=== PATIENT | male | born 1975 | race African-American/Black ===

== ENCOUNTER 2017-07-10 13:02 | Observation (INO) | payer MEDICAID, OTHER ==
[2017-07-10] MEDS ORDERED: Aspirin 81 MG Tab.Chew PO ONE (14:24)
[2017-07-10] MEDS ORDERED: Sodium Chloride 0.9% 10 ML Syringe FLUSH SCH (14:30)
[2017-07-10] MEDS ORDERED: Acetaminophen 325 MG Tab PO PRN (15:00)
[2017-07-10] MEDS ORDERED: Sodium Chloride 0.9% 10 ML Syringe FLUSH PRN (15:00)
--- NOTE | 2017-07-10 15:19 | PCM.HP ---
H&P History of Present Illness - General Date of Service: 07/10/17 Admit Problem/Dx: Admission Diagnosis/Problem Admission Diagnosis/Problem Chest pain Source of Information: Patient, Family, Old Records, Provider History Limitations: Reports: Other (multiple facilities, records not available. ) - History of Present Illness Initial Comments - Free Text/Narative: Patient is a 42-year-old male with a history of a cardiac ablation for unknown causes at the age of 14 and a pacemaker placement at the age of 26. He has a history of paroxysmal atrial fibrillation and was diagnosed with this in about 2003. He refuses warfarin because he doesn't like how it makes him feel. The patient has a history of intermittent chest pain with pressure sensation, squeezing and heaviness. He also has trouble with shortness of breath particularly with exertion. He has an extensive history of tobacco abuse, cannabis, and NyQuil abuse. He drinks alcohol occasionally. He was recently incarcerated in [place] for a domestic abuse charge which apparently was against a child. When he got out of senior living apparently he presented to the [place] emergency department and ended up being hospitalized and having a stress test done there. He tells me he never heard the results back. It was a treadmill test and he tells me he went 13 minutes and they didn't have to stop the test, but he also had dye injected and never heard what that result was. This was sometime after October. He moved back here with his and this morning woke up at 5 AM with a squeezing, heavy chest pressure. This heavy chest pressure was similar to what he has had before, but much more severe. Associated with shortness of breath but not really more shortness of breath than normal. He had no dizziness, no nausea or vomiting, no radiation to the jaw or arm. No radiation through the back. It was like a squeezing tightness in his chest where he just felt like he couldn't catch his breath. He stayed in bed because he was so comfortable in bed and then after his made him some coffee he finally got up. Didn't change with activity, eating or drinking didn' t make it better or worse. Sometimes this pain lasts for 2 days and sometimes just for a few minutes. He normally can go ahead and just do his regular activities but this was much more severe than usual. He finally went into the clinic for an urgent care appointment at around 11. He was seen and evaluated at the clinic at [facility]. Troponin was done and was 0.010 which is negative. The upper limit of normal 0.08. CBC was done which was completely unremarkable with a hemoglobin of 14.1, white count 7, platelets 183,000, chemistries were normal with a glucose of 97, sodium 136, potassium 4.2, chloride 104, CO2 26, BUN 21, creatinine 1.04, normal liver enzymes, normal albumin. Patient received a nebulizer treatment they're thinking this may be related to his asthma with no improvement in his symptoms. The provider at the clinic called me and asked me to admit the patient for serial troponins and rule out myocardial infarction. The patient's pain started at 5 AM and his initial labs were done at 1144. He had had constant pain throughout that time. He continues to have the same sensation only it's much less painful at this time. He describes it now more a gentle squeezing or tightness in the chest. It was previously 10, now 10. Past medical history: -Reported history of asthma -Reported history of pacemaker placement, status post ablation, and paroxysmal atrial fibrillation as noted above. Echocardiogram done 08/12/2016 showed EF of 60%, no diastolic dysfunction, no wall motion abnormalities. Essentially a normal study. I was able to obtain stress echo results from [facility] done 02/05/2017 which showed ejection fraction 55% with Augmentin to 65% with exercise. No regional wall motion abnormalities, negative for diagnostic ischemic EKG changes and a peak level stress, normal heart response, normal blood pressure response, and exercise capacity above average based on age and gender. Normal stress echocardiogram. -Reported history of tobacco abuse, smoking less than a pack a day currently. -Bipolar disorder currently not on medication - Cannabis abuse 4-5 times a day, every day. - History of generalized anxiety disorder and depression currently in remission , not on medication. Current medications: [facility] records notes the patient is taking Seroquel but he says he has not been taking this. Otherwise medications are Flonase, delirium, Coreg twice a day , albuterol, aspirin daily but he did not take it today. Social history: The patient lives in [place] with his . She has children and he has children but none of them live with them. He and his moved back here in January. He had been in senior living from Father's Day 2016 through October 01. Then after 2 or 3 days was hospitalized in [place] and had a stress test done which he does not know the results of. He smokes a little less than a pack cigarettes per day. Occasional alcohol use, he drinks NyQuil in large unquantified volumes daily since he was a child, he smokes marijuana for 5 times a day. He has 9 children, none of whom live with him. He works as a injection molder, breeding blue heelers and pit bulls. Family history: His mother's side of the family is diffusely positive for heart disease although he can't give me any details. His oldest daughter had some type of heart event at the age of 17 but he's not sure what. His father just recently got a pacemaker placed but he doesn't talk to him regularly so isn't sure why. His mother is living and healthy as far as he knows. He has 13 brothers and 10 sisters most of which are half siblings. - Related Data Allergies/Adverse Reactions: Allergies Allergy/AdvReac Type Severity Reaction Status Date / Time cyclobenzaprine HCl Allergy Severe Swelling Verified 07/10/17 13:28 [From Flexeril] digoxin Allergy Cannot Verified 07/10/17 13:28 Remember latex Allergy Hives Verified 07/10/17 13:28 Pork/Porcine Containing Allergy Cannot Verified 07/10/17 13:28 Products Remember tomato [Tomato] Allergy Cannot Verified 07/10/17 13:28 Remember CATS Allergy Cannot Uncoded 07/10/17 13:28 Remember DOGS Allergy Cannot Uncoded 07/10/17 13:28 Remember SEASONAL ALLERGIES Allergy Cannot Uncoded 07/10/17 13:28 Remember Home Medications: Home Meds RX: Carvedilol [Coreg] 25 mg PO BID 11/15/12 [History] RX: Formoterol/Mometasone [Dulera 100 MCG/5 MCG] 2 puff PO BID 04/29/15 [History ] RX: Carvedilol [Coreg] 6.25 mg PO BID 07/10/17 [History] RX: predniSONE 40 mg PO WITHBREAKFAST 4 Days #8 tablet 07/10/17 [Rx] Past Medical History Cardiovascular History: Reports: Afib, Cardiomyopathy, Pacemaker, Other (See Below) Other Cardiovascular History: HAS HISTORY OF ENLARGED HEART. Pt has Hx Goldsmith- Parkinson-White syndrome. Respiratory History: Reports: Asthma Gastrointestinal History: Reports: Other (See Below) Other Gastrointestinal History: decreased appetite - Infectious Disease History Infectious Disease History: Reports: None - Past Surgical History Cardiovascular Surgical History: Reports: AICD Social & Family History - Family History Family Medical History: Noncontributory - Tobacco Use Smoking Status *Q: Current Every Day Smoker Years of Tobacco use: 28 Packs/Tins Daily: 0.7 Used Tobacco, but Quit: No Second Hand Smoke Exposure: Yes - Caffeine Use Caffeine Use: Reports: Coffee - Recreational Drug Use Recreational Drug Use: Yes Drug Use in Last 12 Months: Yes Recreational Drug Type: Reports: Marijuana/Hashish Recreational Drug Use Frequency: Binges Recreational Drug Last Use: T - Living Situation & Occupation Living situation: Reports: Single Occupation: Disabled H&P Review of Systems - Review of Systems: Review Of Systems: ROS reveals no pertinent complaints other than HPI. Exam - Exam Exam: See Below - Vital Signs Weight: 77.428 kg - Exam General: Alert, Oriented, Cooperative (No distress. Talking and laughing in the exam room with his and staff. Has pain currently 5/10. ) HEENT: PERRLA, Conjunctiva Clear, Mucosa Moist & Falkner, Posterior Pharynx Clear Neck: Supple, Trachea Midline Lungs: Normal Respiratory Effort, Decreased Breath Sounds, Wheezing (Diffuse expiratory wheezing. ) Cardiovascular: Regular Rate, Regular Rhythm, Normal S1, Normal S2 (Paced rhythm.) GI/Abdominal Exam: Normal Bowel Sounds, Soft, Non-Tender, No Distention Extremities: No Pedal Edema Psychiatric: Alert EKG INTERPRETATION EKG Date: 07/10/17 EKG Interpretation Comments: EKG done at the clinic shows paced rhythm which is clearly atrial paced and he has inverted T waves in 2, 3, aVF and V4, V5 and the 6. No ST elevation or depression. The last EKG I am able to find in the [facility] system is from August and shows that T-wave inversion is a new finding. However when I look back at 2014 EKG June 22, he had flipped T waves at that time in 3 and aVF, and V4. - Problem List (1) Chest pain SNOMED Code(s): 64130795 ICD Code: R07.9 - CHEST PAIN, UNSPECIFIED Status: Acute Priority: High Current Visit: No Onset Date: 06/21/14 Problem Details: Given that the patient had pain from 5 AM and a negative troponin at 11:44, and his pain has not changed in its quality during that time and is still present currently, I think very unlikely this is cardiac in origin. Discussed with the patient that after having 12 hours of pain with 2 negative troponins it's very unlikely that he is having heart ischemia as the cause of his pain. Second troponin at 1700 was negative. Discussed the evidence that this was not a heart attack. Although the patient had flipped T waves in his EKG at the clinic, these resolved and went back to baseline with repeat EKG here. Discussed with the patient that none of the testing that we do can prove that he won't have a heart attack but the fact that his troponin was negative shows that no heart tissue was currently damaged. I recommended he follow-up with his patrol man tomorrow and he'll call them by phone and schedule an appointment. Of note with the DuoNeb and the prednisone he feels his breathing has considerably improved and he now believes that that was the cause of his shortness of breath and his chest tightness. We'll discharge him home on prednisone with short interval follow-up with cardiology. If sxs recur, come to ER. (2) Asthma SNOMED Code(s): 569429180 ICD Code: J45.909 - UNSPECIFIED ASTHMA, UNCOMPLICATED Status: Acute Current Visit: Yes Problem Details: Discharge on 40 mg prednisone daily for 5 days, first dose given today. Stressed the importance of not exposing his lungs to smoke either marijuana or cigarette. Follow-up with his primary care provider within a week. Problem List Initiated/Reviewed/Updated: Yes Orders Last 24hrs: Active Orders 24 hr Category Date Time Status Patient Status [ADT] Routine ADT 07/10/17 15:00 Ordered Bedrest Bedside Commode [RC] ASDIRECTED Care 07/10/17 15:00 Ordered Cardiac Monitoring [RC] CONTINUOUS Care 07/10/17 15:01 Ordered Height and Weight [RC] DAILY Care 07/10/17 15:00 Ordered Intake and Output [RC] QSHIFT Care 07/10/17 15:01 Ordered Oxygen Therapy [RC] PRN Care 07/10/17 15:00 Ordered VTE/DVT Education [RC] Per Unit Routine Care 07/10/17 15:00 Ordered Vital Signs [RC] Q4H Care 07/10/17 15:00 Ordered Clear Liquid Diet [DIET] Diet 07/10/17 Breakfast Ordered Chest 2V [CR] Routine Exams 07/10/17 15:00 Ordered TROPONIN I [CHEM] Timed Lab 07/10/17 17:00 Ordered Acetaminophen [Tylenol] Med 07/10/17 15:00 Ordered 650 mg PO Q4H PRN Sodium Chloride 0.9% [Saline Flush] Med 07/10/17 15:00 Ordered 10 ml FLUSH ASDIRECTED PRN Sodium Chloride 0.9% [Saline Flush] Med 07/10/17 14:30 Active 10 ml FLUSH DAILY Peripheral IV Insertion Adult [OM.PC] Routine Oth 07/10/17 15:00 Ordered Resuscitation Status Routine Resus Stat 07/10/17 15:00 Ordered Medication Orders Sodium Chloride (Saline Flush) 10 ml FLUSH DAILY JING Last Admin: 07/10/17 14:15 Dose: 10 ml
[2017-07-10] MEDS ORDERED: Albuterol/Ipratropium 3.0-0.5 MG/3 ML Neb Soln NEB PRN (15:34)
[2017-07-10] MEDS ORDERED: predniSONE 20 MG Tab PO SCH (15:40)
[2017-07-10] MEDS ORDERED: Nitroglycerin 0.4 MG Tab.SL ONE (15:53)
[2017-07-10] MEDS ORDERED: Nitroglycerin 0.4 MG Tab.SL SL PRN ×2 (16:22→16:25)
[2017-07-10] MEDS ORDERED: Nitroglycerin 0.4 MG Tab.SL SL ONE (16:23)
[2017-07-10 16:49] VITALS: BP 139/97
[2017-07-10] MEDS ORDERED: Formoterol/Mometasone 100-5 MCG 8.8 GM Inhaler IH SCH (21:00)
[2017-07-10] MEDS ORDERED: Carvedilol 25 MG Tab PO SCH (21:00)
[2017-07-10] MEDS ORDERED: Carvedilol 6.25 MG Tab PO SCH (21:00)
--- NOTE | 2017-07-11 10:36 | CR ---
INDICATION: Short of breath, chest pain. CHEST: PA and lateral views of the chest were obtained 07/10/2017 and compared with 03/28/2015 and 06/21/2014. Hyperaeration, flattened diaphragm leaves, AP diameter prominence, and interdigitation of the right hemidiaphragm leaf were all compatible with COPD, which likely is progressive. The heart appears to be near the upper limits of normal in size. The aorta is somewhat tortuous. Bipolar pacemaker leads are unchanged in position with atypical position of the right ventricular lead again noted. Overlying EKG leads are noted. An active infiltrate or effusion was not identified. IMPRESSION: 1. Stable chest, except for question of slightly increased heart size. No definite acute process. 2. COPD. 3. Probable mild ASD aorta. MTDD
== END 2017-07-10 17:55 | disposition home or self-care (01) ==
LOC: FB.ICU 13:02
PROVIDERS: ADMIT Family Medicine; ATTEND Family Medicine
DX: R07.89 Other chest pain (principal); J45.909 Unspecified asthma, uncomplicated; I48.0 Paroxysmal atrial fibrillation; F31.9 Bipolar disorder, unspecified; F12.10 Cannabis abuse, uncomplicated; F41.1 Generalized anxiety disorder; I42.9 Cardiomyopathy, unspecified; Z95.0 Presence of cardiac pacemaker; Z87.891 Personal history of nicotine dependence; Z79.82 Long term (current) use of aspirin; Z79.899 Other long term (current) drug therapy; Z82.49 Family history of ischemic heart disease and other diseases of the circulatory system; Z88.8 Allergy status to other drugs, medicaments and biological substances; Z91.040 Latex allergy status; Z91.018 Allergy to other foods; Z91.09 Other allergy status, other than to drugs and biological substances
CPT/HCPCS: 36415; 71046; 84484; 93005; A9270; J7050; G0378

== ENCOUNTER 2017-08-04 03:46 | Emergency (ER) | payer MEDICAID ==
[2017-08-04] MEDS: Aspirin 81 MG Tab.Chew PO ONE (04:45)
[2017-08-04] MEDS: Metoclopramide 10 MG/2 ML SDV IVPUSH ONE ×2 (05:00→06:51)
[2017-08-04] MEDS: Alum Hydroxide/Mag Hydroxide 15 ML, Lidocaine 2% 15 ML PO ONE ×4 (05:16→09:02)
[2017-08-04] MEDS: Sodium Chloride 0.9% 1,000 ML IV SCH ×2 (05:58→08:13)
[2017-08-04] MEDS: Morphine 10 MG/ML Syringe IVPUSH ONE (06:13)
[2017-08-04] MEDS ORDERED: Metoprolol Tartrate 5 MG in Sodium Chloride 0.9% 50 ML IV ONE (07:36)
[2017-08-04] MEDS ORDERED: Metoprolol Tartrate 50 MG Tab PO SCH (07:45)
[2017-08-04] MEDS ORDERED: Diltiazem IR 60 MG Tab PO SCH (08:00)
[2017-08-04] MEDS: Diltiazem 25 MG/5 ML SDV IVPUSH ONE (08:13)
[2017-08-04] MEDS: Diltiazem IR 60 MG Tab PO SCH (08:14)
[2017-08-04 11:25] VITALS: BP 146/84
--- NOTE | 2017-08-05 09:22 | CR ---
INDICATION: Chest pain. CHEST: AP upright view of the chest was obtained 08/04/2017 at 0449 hours and compared with 07/10/2017 and 03/28/2015. The heart is at the upper limits of normal in size and appearance. Bipolar pacemaker leads are unchanged in position. The ventricular lead is in atypical position. Overlying EKG leads are noted. The lungs appear to be somewhat hyperaerated, suggesting COPD - correlate clinically. The aorta is tortuous. An active infiltrate or effusion was not identified. IMPRESSION: No acute process - findings as noted above. MTDD
--- NOTE | 2017-08-08 09:41 | ER ---
DATE SEEN: 08/04/2017 HISTORY OF PRESENT ILLNESS: This 42-year-old man, 3+ years ago, had been diagnosed with WPW, had ablation for atrial fibrillation, now has pacemaker in place. He presents this evening with a history of 2 successive stools followed by vomiting on 3 occasions and standing in the shower for an hour and a half. He presented to the emergency room at 0410 hours. He had burning in his chest, which he thinks is secondary to vomiting and what he calls as chest pain. His chest wall is uncomfortable. The patient uses marijuana. He has a pacemaker in place. He uses Coreg 6.25 mg b.i.d. plus carvedilol/Coreg 25 mg b.i.d. for a total of 31.25 mg b.i.d. He has been taking his medicine. Has asthma. MEDICATIONS: He takes: 1. Montelukast/Singulair daily. 2. Prednisone 20 mg b.i.d. 3. Formoterol/mometasone-Dulera 100 mcg/5 mcg. ALLERGIES: Cyclobenzaprine, digoxin, latex, pork, tomatoes, cats, dogs, seasonal allergies. He had pork yesterday and thought that probably this was the cause for his vomiting. OTHER SIGNIFICANT PAST MEDICAL HISTORY: He has had toothaches, acute coronary syndrome, asthma attacks. REVIEW OF SYSTEMS: HEENT: Has mild headache. No sore throat. No fever. No chills. No cough. No sinus problem. LUNGS: No cough. No increased shortness of breath. He has burning in his chest, which he describes as chest pain and relates this to his vomiting. Has mild abdominal discomfort. Denies diarrhea. He has had vomiting. No hematochezia. No jaundice history. No hepatitis history. No other unusual infectious diseases. Denies any musculoskeletal complaints or joint pains in previous years, history of head injury or serious headaches or migraines. PHYSICAL EXAMINATION: VITAL SIGNS: Blood pressure 182/117, heart rate 60, respirations 12, oxygen saturation 100%. HEENT: PERRLA intact. He has slight fogging of the lens in his eyes. I was unable to visualize the eyegrounds well enough, but did not appear to have AV nicking. No hemorrhages. No optic cup disc abnormalities. EOMs normal. Hearing is good. The patient is lying in a slight position resting on his side. LUNGS: Clear without rales, rhonchi, or wheezes. HEART: S1, S2. S2 is greater than S1. ABDOMEN: Soft. No guarding. No abdominal discomfort. Bowel sounds hypoactive. No CVA percussion tenderness. No spinous process or neck tenderness or cervical adenopathy or tracheal tug. EXTREMITIES: Without abnormality. Deep tendon reflexes normoactive upper and lower extremities. Cranial nerves 2 through 12 intact. Gait intact. Romberg negative and no pronator drift. No dysmetria. WORKING DIAGNOSIS: Etiology for the patient's pain, rule out possible myocardial infarction. Hypertension is a concern. It is presumed that blood pressure come down is brief, but his blood pressure was persistently elevated. Consequently, he was given a dose of labetalol 5 mg IV and a dose of diltiazem 10 mg IV push, plus 60 mg diltiazem orally, plus metoclopramide 10 mg IV, and aspirin 325 mg orally, plus GI cocktail. He vomited this up, but later when he was without nausea, this was repeated and he was able to keep the GI cocktail down. GI cocktail was signed to treat his burning. LAB TESTS: Demonstrate he was positive for marijuana, otherwise, no other drugs noted in his drug screen. White count 9,200, PMNs 77, lymphocytes 19, monos 2, eosinophils 0, platelets 295,000. D-dimer is trace elevated 0.6. This is just slightly above normal at 0.59 and complete metabolic panel negative except for chloride 99, sodium 136, potassium 4.9, CO2 of 29, glucose 123, troponin less than 0.017, alkaline phosphatase trace elevated at 53. Urine is negative except for positive for marijuana. Additionally, I have concerns about the patient having a CAT scan of the head to make sure, because of the persistent vomiting. CAT scan of the head was negative. He gradually has progressed and his blood pressure came down. He had a prolonged stay in the emergency room, as it took a while to bring his pressure down and also there was a delay in coming to diagnosed etiology for his vomiting. It is thought perhaps he might have gastrointestinal-mediated process, but this was felt to be unlikely because of his abdominal exam. His pressures gradually came down to 156/96. I spoke regarding his status with Dr. Powers, monument setter helper, in [place]. He concurred with the idea that the patient should be on a calcium channel chelle, as opposed to beta chelle, since he is and they do much better on the calcium channel chelle. Consequently, the patient to be placed on amlodipine and decrease his Coreg to 5 mg a day and see his doctor on a daily basis. His amlodipine may need to be increased up to 10 mg if does not stabilize on the current regimen. We felt the patient should be tapered off his beta chelle and use amlodipine and calcium channel chelle. OTHER DIAGNOSES: 1. WPW with atrial fibrillation and subsequent ablation and pacemaker placement. 2. Hypertensive urgency. 3. Had a chest x-ray, has a globular heart. 4. EKG is without abnormality, except for paced rhythm. No ST changes. 5. Vomiting, etiology undetermined, possibly related to eating pork, which he ate pork yesterday. The patient was seen at 0410 hours. /[id number]
== END 2017-08-04 09:10 | disposition home or self-care (01) ==
LOC: FB.ED 03:46
DX: I45.6 Pre-excitation syndrome (principal); I48.91 Unspecified atrial fibrillation; I16.0 Hypertensive urgency; R11.10 Vomiting, unspecified; I10 Essential (primary) hypertension; J45.909 Unspecified asthma, uncomplicated; Z88.8 Allergy status to other drugs, medicaments and biological substances; Z79.899 Other long term (current) drug therapy; Z95.0 Presence of cardiac pacemaker; Z91.040 Latex allergy status; Z79.82 Long term (current) use of aspirin
CPT/HCPCS: 36415; 70450; 71045; 80053; 80305; 84484; 85025; 85379; 93005; 96361; 96374; 96375; 96376; 99285; A9270; J2270; J2765; J3490; J7030

== ENCOUNTER 2017-09-13 15:30 | Emergency (ER) | payer MEDICAID ==
[2017-09-13] MEDS ORDERED: Aspirin 81 MG Tab.Chew PO ONE (15:39)
[2017-09-13] MEDS ORDERED: Nitroglycerin 2% Oint 1 GM UD Packet TOP ONE (15:39)
--- NOTE | 2017-09-13 15:43 | EDM.PDOC ---
ED HPI GENERAL MEDICAL PROBLEM - General Stated Complaint: VOMITTING,DIARRHEA,MUSCLE PAIN Time Seen by Provider: 09/13/17 15:30 Source of Information: Reports: Patient, Family History Limitations: Reports: Uncooperative - History of Present Illness INITIAL COMMENTS - FREE TEXT/NARRATIVE: 42 y.o.b.male came with his SO to the ed with his because of weakness at his lower extremities and chest pain. Pt is well known in this ED due to frequent visits. No N/V initially, his lower legs are tingling. Pt is poor historian, is present. No trauma. P takes marijuana. BP 170/87 Pulse 60 RR 20 Pulse ox 100% on RA Temp 36.8 Onset Date: 09/12/17 Onset Time: 08:00 Duration: Hour(s):, Intermittent Location: Reports: Chest, Abdomen, Lower Extremity, Left, Lower Extremity, Right Quality: Reports: Ache, Burning, Dull, Same as Previous Episode Severity: Moderate Improves with: Reports: Rest Worsens with: Reports: Movement Context: Reports: Other Associated Symptoms: Reports: Chest Pain, Nausea/Vomiting whole chest and both legs Pain Score (Numeric/FACES): 9 - Related Data Allergies Allergy/AdvReac Type Severity Reaction Status Date / Time cyclobenzaprine HCl Allergy Severe Swelling Verified 09/13/17 15:48 [From Flexeril] digoxin Allergy Cannot Verified 09/13/17 15:48 Remember latex Allergy Hives Verified 09/13/17 15:48 Pork/Porcine Containing Allergy Cannot Verified 09/13/17 15:48 Products Remember tomato [Tomato] Allergy Cannot Verified 09/13/17 15:48 Remember CATS Allergy Cannot Uncoded 09/13/17 15:48 Remember DOGS Allergy Cannot Uncoded 09/13/17 15:48 Remember SEASONAL ALLERGIES Allergy Cannot Uncoded 09/13/17 15:48 Remember Home Meds: Home Meds Formoterol/Mometasone [Dulera 100 MCG/5 MCG] 2 puff PO BID 04/29/15 [History] Carvedilol [Coreg] 6.25 mg PO BID 07/10/17 [History] Montelukast [Singulair] 10 mg PO DAILY 08/04/17 [History] amLODIPine Besylate [Amlodipine Besylate] 5 mg PO DAILY #30 tablet 08/04/17 [Rx] Magnesium 200 mg PO BID #10 tablet 09/13/17 [Rx] Ondansetron [Zofran ODT] 4 mg PO Q6H PRN #10 tab.dis 09/13/17 [Rx] Past Medical History Cardiovascular History: Reports: Afib, Cardiomyopathy, Pacemaker, Other (See Below) Other Cardiovascular History: HAS HISTORY OF ENLARGED HEART. Pt has Hx Goldsmith- Parkinson-White syndrome. Respiratory History: Reports: Asthma Gastrointestinal History: Reports: Other (See Below) Other Gastrointestinal History: decreased appetite Psychiatric History: Reports: Depression - Infectious Disease History Infectious Disease History: Reports: None - Past Surgical History Cardiovascular Surgical History: Reports: AICD Social & Family History - Family History Family Medical History: Unobtainable - Caffeine Use Caffeine Use: Reports: Coffee - Living Situation & Occupation Living situation: Reports: Single Occupation: Disabled ED ROS GENERAL - Review of Systems Review Of Systems: See Below Constitutional: Reports: Weakness, Decreased Appetite HEENT: Reports: No Symptoms Respiratory: Reports: Shortness of Breath Cardiovascular: Reports: Chest Pain Endocrine: Reports: No Symptoms GI/Abdominal: Reports: No Symptoms : Reports: No Symptoms Musculoskeletal: Reports: Muscle Pain Skin: Reports: No Symptoms Neurological: Reports: No Symptoms Psychiatric: Reports: No Symptoms Hematologic/Lymphatic: Reports: No Symptoms Immunologic: Reports: No Symptoms ED EXAM, GENERAL - Physical Exam Exam: See Below Exam Limited By: Uncooperative General Appearance: Alert, No Apparent Distress, Mild Distress, Thin Eye Exam: Bilateral Eye: Normal Inspection Ears: Normal External Exam Ear Exam: Bilateral Ear: Auricle Normal Nose: Normal Inspection Throat/Mouth: Normal Inspection, Normal Voice, No Airway Compromise Head: Atraumatic, Normocephalic Neck: Normal Inspection, Supple, Non-Tender, Full Range of Motion Respiratory/Chest: No Respiratory Distress, Lungs Clear, Normal Breath Sounds, No Accessory Muscle Use Cardiovascular: Normal Peripheral Pulses, Regular Rate, Rhythm, No Edema, No Gallop, No Rub Peripheral Pulses: 1+: Carotid (R) GI/Abdominal: Normal Bowel Sounds, Soft, Non-Tender, No Organomegaly (Male) Exam: Deferred Rectal (Males) Exam: Deferred Back Exam: Normal Inspection, Full Range of Motion Extremities: Normal Inspection, Normal Range of Motion, Non-Tender, No Pedal Edema Neurological: Alert, Oriented, CN II-XII Intact Psychiatric: Normal Affect, Normal Mood Skin Exam: Warm, Dry, Intact, Normal Color, No Rash Lymphatic: No Adenopathy EKG INTERPRETATION EKG Date: 09/13/17 Time: 15:40 Rhythm: Other (atrial paced complexes) Rate (Beats/Min): 60 Wheatcroft: Normal P-Wave: Present QRS: Normal ST-T: Normal QT: Normal Comparison: NA - No Prior EKG Course - Vital Signs Text/Narrative:: 42 y.o.b.male came with his SO to the ed with his because of weakness at his lower extremities and chest pain. Pt is well known in this ED due to frequent visits. No N/V initially, his lower legs are tingling. Pt is poor historian, is present. No trauma. P takes marijuana. BP 170/87 Pulse 60 RR 20 Pulse ox 100% on RA Temp 36.8 PE: Thin wnwb b male with lower leg extremity weakness and chest pain Labs: WBC 12.5 Mg 1.5 K 4.0 Na 138 GFR >60 UDS pos for Marijuana Imaging: CXR: NAD Impression: Hypomagnesia, + UDS, Gen body ache, Dehydration Tx: Slow mag, NS, Toradol , Zofran Reexam: Pt had a episode of vomiting while here in the ed. Zofran was given. Pt was doing well and was ambulating fine on D/.C Plan: D/C with instructions Last Recorded V/S: Last Vital Signs Temp 37.1 C 09/13/17 18:50 Pulse 68 09/13/17 18:50 Resp 20 09/13/17 18:50 BP 157/102 H 09/13/17 18:50 Pulse Ox 100 09/13/17 18:50 - Orders/Labs/Meds Orders: Active Orders 24 hr Category Date Time Status Chest 1V Frontal [CR] Stat Exams 09/13/17 15:39 Taken DRUG SCREEN, URINE ALERE [URCHEM] Stat Lab 09/13/17 17:45 Ordered EKG 12 Lead [EK] Routine Ther 09/13/17 15:36 Ordered Labs: Laboratory Tests 09/13/17 09/13/17 09/13/17 Range/Units 15:50 15:50 15:50 WBC 12.6 H (4.5-12.0) X10-3/uL RBC 5.38 (4.30-5.75) x10(6)uL Hgb 16.1 H (11.5-15.5) g/dL Hct 49.0 (30.0-51.3) % MCV 91.1 (80-96) fL MCH 29.9 (27.7-33.6) pg MCHC 32.8 (32.2-35.4) g/dL RDW 14.0 (11.5-15.5) % Plt Count 224 (125-369) X10(3)uL MPV 8.3 (7.4-10.4) fL Neut % (Auto) 80.3 (46-82) % Lymph % (Auto) 10.5 L (13-37) % Harrison % (Auto) 7.6 (4-12) % Eos % (Auto) 0 L (1.0-5.0) % Baso % (Auto) 2 (0-2) % Neut # (Auto) 10.1 H (1.6-8.3) # Lymph # (Auto) 1.3 (0.6-5.0) # Harrison # (Auto) 1.0 (0.0-1.3) # Eos # (Auto) 0.0 (0.0-0.8) # Baso # (Auto) 0.2 (0.0-0.2) # Sodium 141 (135-145) mmol/L Potassium 4.0 (3.5-5.3) mmol/L Chloride 103 (100-110) mmol/L Carbon Dioxide 20 L (21-32) mmol/L BUN 17 (7-18) mg/dL Creatinine 1.2 (0.70-1.30) mg/dL Est Cr Clr Drug Dosing TNP Estimated GFR (MDRD) > 60 (>60) BUN/Creatinine Ratio 14.2 (9-20) Glucose 148 H (80-116) mg/dL Calcium 9.9 (8.6-10.2) mg/dL Magnesium (1.8-2.5) mg/dL Creatine Kinase 120 (60-160) IU/L Troponin I < 0.017 L (<0.017-0.056) ng/mL Urine Opiates Screen (NEGATIVE) Ur Oxycodone Screen (NEGATIVE) Ur Propoxyphene Screen (NEGATIVE) Ur Barbituates Screen (NEGATIVE) Ur Tricyclics Screen (NEGATIVE) Ur Phencyclidine Scrn (NEGATIVE) Ur Amphetamine Screen (NEGATIVE) Urine MDMA Screen (NEGATIVE) U Benzodiazepines Scrn (NEGATIVE) U Cocaine Metab Screen (NEGATIVE) U Marijuana (THC) Screen (NEGATIVE) Ethyl Alcohol (<0.03) % 09/13/17 09/13/17 09/13/17 Range/Units 15:50 15:50 17:45 WBC (4.5-12.0) X10-3/uL RBC (4.30-5.75) x10(6)uL Hgb (11.5-15.5) g/dL Hct (30.0-51.3) % MCV (80-96) fL MCH (27.7-33.6) pg MCHC (32.2-35.4) g/dL RDW (11.5-15.5) % Plt Count (125-369) X10(3)uL MPV (7.4-10.4) fL Neut % (Auto) (46-82) % Lymph % (Auto) (13-37) % Harrison % (Auto) (4-12) % Eos % (Auto) (1.0-5.0) % Baso % (Auto) (0-2) % Neut # (Auto) (1.6-8.3) # Lymph # (Auto) (0.6-5.0) # Harrison # (Auto) (0.0-1.3) # Eos # (Auto) (0.0-0.8) # Baso # (Auto) (0.0-0.2) # Sodium (135-145) mmol/L Potassium (3.5-5.3) mmol/L Chloride (100-110) mmol/L Carbon Dioxide (21-32) mmol/L BUN (7-18) mg/dL Creatinine (0.70-1.30) mg/dL Est Cr Clr Drug Dosing Estimated GFR (MDRD) (>60) BUN/Creatinine Ratio (9-20) Glucose (80-116) mg/dL Calcium (8.6-10.2) mg/dL Magnesium 1.5 L (1.8-2.5) mg/dL Creatine Kinase (60-160) IU/L Troponin I (<0.017-0.056) ng/mL Urine Opiates Screen Negative (NEGATIVE) Ur Oxycodone Screen Negative (NEGATIVE) Ur Propoxyphene Screen Negative (NEGATIVE) Ur Barbituates Screen Negative (NEGATIVE) Ur Tricyclics Screen Negative (NEGATIVE) Ur Phencyclidine Scrn Negative (NEGATIVE) Ur Amphetamine Screen Negative (NEGATIVE) Urine MDMA Screen Negative (NEGATIVE) U Benzodiazepines Scrn Negative (NEGATIVE) U Cocaine Metab Screen Negative (NEGATIVE) U Marijuana (THC) Screen Positive H (NEGATIVE) Ethyl Alcohol < 0.03 (<0.03) % Meds: Medications Discontinued Medications Generic Name Dose Route Start Last Admin Trade Name Freq PRN Reason Stop Dose Admin Aspirin 324 mg 09/13/17 15:39 09/13/17 15:47 Aspirin PO 09/13/17 15:40 324 mg ONETIME ONE Administration Sodium Chloride 1,000 mls @ 999 mls/hr 09/13/17 16:45 09/13/17 16:32 Normal Saline IV 999 mls/hr ASDIRECTED JING Administration Ketorolac Tromethamine 30 mg 09/13/17 16:38 09/13/17 16:45 Toradol IVPUSH 09/13/17 16:39 30 mg ONETIME ONE Administration Magnesium Chloride 64 mg 09/13/17 18:30 09/13/17 18:39 Mag-64 PO 09/13/17 18:31 64 mg ONETIME STA Administration Nitroglycerin 1 gm 09/13/17 15:39 09/13/17 16:01 Nitro-Bid 2% TOP 09/13/17 15:40 1 gm ONETIME ONE Administration Ondansetron HCl 8 mg 09/13/17 17:02 09/13/17 17:05 Zofran IVPUSH 09/13/17 17:03 8 mg ONETIME ONE Administration Departure - Departure Time of Disposition: 18:37 Disposition: Home, Self-Care 01 Condition: Good Clinical Impression: Hypomagnesemia, Atypical chest pain, Dehydration, Positive urine drug screen Gastritis Qualifiers: Gastritis type: unspecified gastritis Prescriptions: Magnesium 200 mg PO BID #10 tablet Ondansetron [Zofran ODT] 4 mg PO Q6H PRN #10 tab.dis PRN Reason: Nausea Instructions: Hypomagnesemia, Dehydration, Adult, [id number], Nonspecific Chest Pain, [id number] Referrals: Mi Ribera NP [Primary Care Provider] - Forms: ED Department Discharge Additional Instructions: Please cont your meds, take Zofran and Mg as recommended, please f/u with your PMD, come back if your symptoms get worse acutely, Please no Drugs, no ETOH - My Orders Last 24 Hours: My Active Orders 09/13/17 15:36 EKG 12 Lead [EK] Routine 09/13/17 15:39 Chest 1V Frontal [CR] Stat 09/13/17 17:45 DRUG SCREEN, URINE ALERE [URCHEM] Stat - Assessment/Plan Last 24 Hours: My Active Orders 09/13/17 15:36 EKG 12 Lead [EK] Routine 09/13/17 15:39 Chest 1V Frontal [CR] Stat 09/13/17 17:45 DRUG SCREEN, URINE ALERE [URCHEM] Stat
[2017-09-13] MEDS ORDERED: Ketorolac 30 MG/ML SDV IVPUSH ONE (16:38)
[2017-09-13] MEDS ORDERED: Sodium Chloride 0.9% 1,000 ML IV SCH (16:45)
[2017-09-13] MEDS ORDERED: Ondansetron 4 MG/2 ML SDV IVPUSH ONE (17:02)
[2017-09-13] MEDS ORDERED: Magnesium Chloride 64 MG Tab.ER PO STA (18:30)
[2017-09-13 19:25] VITALS: BP 157/102
--- NOTE | 2017-09-15 11:39 | CR ---
INDICATION: Chest pain. CHEST: An AP portable upright view of the chest 09/13/2917 was compared with and 07/10/2017, again revealing bipolar pacemaker leads, unchanged in position. The apex of the ventricular lead is not at the apex of the right ventricle but is unchanged from the previous study. The aorta is tortuous. Overlying EKG leads are noted. The lungs appear to be somewhat hyperaerated, raising question of obstructive airway disease - possible COPD - correlate clinically. An active infiltrate or effusion was not identified. The heart did not appear increased in size, compared with the previous study. No specific chamber enlargement was seen. IMPRESSION: Stable chest, no acute process. MTDD
== END 2017-09-13 19:06 | disposition home or self-care (01) ==
LOC: FB.ED 15:30
DX: E83.42 Hypomagnesemia (principal); E86.0 Dehydration; R07.89 Other chest pain; Z88.8 Allergy status to other drugs, medicaments and biological substances; Z91.040 Latex allergy status; Z91.018 Allergy to other foods
CPT/HCPCS: 36415; 71045; 80048; 80305; 82550; 83735; 84484; 85025; 93005; 96361; 96374; 96375; 99284; A9270; G0480; J1885; J2405; J7030

== ENCOUNTER 2017-09-15 17:22 | Emergency (ER) | payer MEDICAID ==
[2017-09-15] MEDS ORDERED: Sodium Chloride 0.9% 10 ML Syringe FLUSH PRN (17:58)
[2017-09-15] MEDS ORDERED: Sodium Chloride 0.9% 1,000 ML IV ONE (17:58)
[2017-09-15] MEDS ORDERED: Pantoprazole 40 MG Vial IVPUSH ONE (17:59)
[2017-09-15] MEDS ORDERED: Promethazine 12.5 MG in Sodium Chloride 0.9% 50 ML IV PRN (18:01)
[2017-09-15] MEDS ORDERED: HYDROmorphone 2 MG/ML SDV IVPUSH ONE (18:02)
--- NOTE | 2017-09-15 18:09 | EDM.PDOC ---
ED HPI GENERAL MEDICAL PROBLEM - General Chief Complaint: Gastrointestinal Problem Stated Complaint: PAIN Time Seen by Provider: 09/15/17 18:04 Source of Information: Reports: Patient, Family History Limitations: Reports: No Limitations - History of Present Illness INITIAL COMMENTS - FREE TEXT/NARRATIVE: Presents with abdominal pain and N/V/D x 3 days. Pain localized to upper abdomen , characterized as burning and radiates into chest. No prior h/o abdominal surgeries. Denies h/o GERD. Treated on 09/13/17 at [facility] for same complaint, rx'd Zofran. Patient reports no improvement with Zofran. Onset: Today Onset Date: 09/12/17 Duration: Day(s): (3) Location: Reports: Abdomen Quality: Reports: Burning Severity: Moderate Improves with: Reports: None Worsens with: Reports: None Associated Symptoms: Reports: Chest Pain mid epigastric Pain Score (Numeric/FACES): 9 - Related Data Allergies Allergy/AdvReac Type Severity Reaction Status Date / Time cyclobenzaprine HCl Allergy Severe Swelling Verified 09/15/17 17:47 [From Flexeril] digoxin Allergy Cannot Verified 09/15/17 17:47 Remember latex Allergy Hives Verified 09/15/17 17:47 Pork/Porcine Containing Allergy Cannot Verified 09/15/17 17:47 Products Remember tomato [Tomato] Allergy Cannot Verified 09/15/17 17:47 Remember CATS Allergy Cannot Uncoded 09/15/17 17:47 Remember DOGS Allergy Cannot Uncoded 09/15/17 17:47 Remember SEASONAL ALLERGIES Allergy Cannot Uncoded 09/15/17 17:47 Remember Home Meds: Home Meds RX: Formoterol/Mometasone [Dulera 100 MCG/5 MCG] 2 puff PO BID 04/29/15 [History ] RX: Carvedilol [Coreg] 6.25 mg PO BID 07/10/17 [History] Montelukast [Singulair] 10 mg PO DAILY 08/04/17 [History] amLODIPine Besylate [Amlodipine Besylate] 5 mg PO DAILY #30 tablet 08/04/17 [Rx] Ondansetron [Zofran ODT] 4 mg PO Q6H PRN #10 tab.dis 09/13/17 [Rx] RX: Magnesium 200 mg PO BID #10 tablet 09/13/17 [Rx] Pantoprazole Sodium [Protonix] 40 mg PO DAILY #15 tab 09/15/17 [Rx] Promethazine [Phenergan] 25 mg PO Q6H PRN #20 tab 09/15/17 [Rx] Past Medical History Cardiovascular History: Reports: Afib, Cardiomyopathy, Pacemaker, Other (See Below) Other Cardiovascular History: HAS HISTORY OF ENLARGED HEART. Pt has Hx Goldsmith- Parkinson-White syndrome. Respiratory History: Reports: Asthma Gastrointestinal History: Reports: Other (See Below) Other Gastrointestinal History: decreased appetite Psychiatric History: Reports: Depression - Infectious Disease History Infectious Disease History: Reports: None - Past Surgical History Cardiovascular Surgical History: Reports: AICD Social & Family History - Family History Family Medical History: Unobtainable - Tobacco Use Smoking Status *Q: Former Smoker Used Tobacco, but Quit: Yes Month/Year Tobacco Last Used: unknown - Caffeine Use Caffeine Use: Reports: Coffee, Tea - Recreational Drug Use Recreational Drug Use: Yes Recreational Drug Type: Reports: Marijuana/Hashish Recreational Drug Use Frequency: Weekly - Living Situation & Occupation Living situation: Reports: Single Occupation: Disabled ED ROS GENERAL - Review of Systems Review Of Systems: See Below Constitutional: Reports: No Symptoms HEENT: Reports: No Symptoms Respiratory: Reports: No Symptoms Cardiovascular: Reports: Chest Pain (burning) Endocrine: Reports: No Symptoms GI/Abdominal: Reports: Abdominal Pain (upper) : Reports: No Symptoms Musculoskeletal: Reports: No Symptoms Skin: Reports: No Symptoms Neurological: Reports: No Symptoms Psychiatric: Reports: No Symptoms Hematologic/Lymphatic: Reports: No Symptoms ED EXAM, GI/ABD - Physical Exam Exam: See Below Exam Limited By: No Limitations General Appearance: Alert, WD/WN, Mild Distress Ears: Normal External Exam Nose: Normal Inspection Throat/Mouth: No Airway Compromise Head: Atraumatic, Normocephalic Neck: Normal Inspection, Supple Respiratory/Chest: No Respiratory Distress, Lungs Clear, Normal Breath Sounds, No Accessory Muscle Use Cardiovascular: Regular Rate, Rhythm, No Murmur GI/Abdominal Exam: Normal Bowel Sounds, Soft, Tender (upper abdomen) Back Exam: Full Range of Motion Extremities: Normal Range of Motion Neurological: Alert, Oriented, Normal Cognition Skin Exam: Warm, Dry Course - Vital Signs Last Recorded V/S: Last Vital Signs Temp 36.5 C 09/15/17 17:25 Pulse 64 09/15/17 17:25 Resp 20 09/15/17 17:25 BP 112/79 09/15/17 17:25 Pulse Ox 100 09/15/17 17:25 - Orders/Labs/Meds Orders: Active Orders 24 hr Category Date Time Status Abdomen Pelvis w Cont [CT] Stat Exams 09/15/17 18:03 Taken UA W/MICROSCOPIC [URIN] Stat Lab 09/15/17 17:57 Ordered Promethazine [Phenergan] 12.5 mg Med 09/15/17 18:01 Active Sodium Chloride 0.9% [Normal Saline] 50 ml IV Q6H Sodium Chloride 0.9% [Saline Flush] Med 09/15/17 17:58 Active 10 ml FLUSH ASDIRECTED PRN Saline Lock Insert [OM.PC] Routine Oth 09/15/17 17:58 Ordered Medication Orders Promethazine HCl 12.5 mg/ (Sodium Chloride) 50.5 mls @ 200 mls/hr IV Q6H PRN PRN Reason: Nausea/Vomiting Last Admin: 09/15/17 18:41 Dose: 200 mls/hr Sodium Chloride (Saline Flush) 10 ml FLUSH ASDIRECTED PRN PRN Reason: Keep Vein Open Last Admin: 09/15/17 18:35 Dose: 10 ml Labs: Laboratory Tests 09/15/17 09/15/17 09/15/17 Range/Units 18:05 18:05 18:05 WBC 9.8 (4.5-12.0) X10-3/uL RBC 5.48 (4.30-5.75) x10(6)uL Hgb 16.6 H (11.5-15.5) g/dL Hct 49.9 (30.0-51.3) % MCV 90.9 (80-96) fL MCH 30.2 (27.7-33.6) pg MCHC 33.3 (32.2-35.4) g/dL RDW 14.3 (11.5-15.5) % Plt Count 212 (125-369) X10(3)uL MPV 8.5 (7.4-10.4) fL Neut % (Auto) 74.1 (46-82) % Lymph % (Auto) 18.6 (13-37) % Harper % (Auto) 5.1 (4-12) % Eos % (Auto) 0 L (1.0-5.0) % Baso % (Auto) 2 (0-2) % Neut # (Auto) 7.2 (1.6-8.3) # Lymph # (Auto) 1.8 (0.6-5.0) # Harper # (Auto) 0.5 (0.0-1.3) # Eos # (Auto) 0.0 (0.0-0.8) # Baso # (Auto) 0.2 (0.0-0.2) # Sodium 142 (135-145) mmol/L Potassium 3.3 L (3.5-5.3) mmol/L Chloride 104 (100-110) mmol/L Carbon Dioxide 22 (21-32) mmol/L BUN 23 H (7-18) mg/dL Creatinine 1.3 (0.70-1.30) mg/dL Est Cr Clr Drug Dosing 73.08 mL/min Estimated GFR (MDRD) > 60 (>60) BUN/Creatinine Ratio 17.7 (9-20) Glucose 143 H (80-116) mg/dL Calcium 9.8 (8.6-10.2) mg/dL Total Bilirubin 1.2 (0.1-1.3) mg/dL AST 25 (5-25) IU/L ALT 19 (12-36) U/L Alkaline Phosphatase 61 (56-112) IU/L Total Protein 8.6 H (6.0-8.0) g/dL Albumin 4.1 (3.5-5.2) g/dL Globulin 4.5 g/dL Albumin/Globulin Ratio 0.9 Amylase 85 (25-115) U/L Meds: Medications Generic Name Dose Route Start Last Admin Trade Name Freq PRN Reason Stop Dose Admin Promethazine HCl 12.5 mg/ 50.5 mls @ 200 mls/hr 09/15/17 18:01 09/15/17 18:41 Sodium Chloride IV 200 mls/hr Q6H PRN Administration Nausea/Vomiting Sodium Chloride 10 ml 09/15/17 17:58 09/15/17 18:35 Saline Flush FLUSH 10 ml ASDIRECTED PRN Administration Keep Vein Open Discontinued Medications Generic Name Dose Route Start Last Admin Trade Name Freq PRN Reason Stop Dose Admin Hydromorphone HCl 1 mg 09/15/17 18:02 09/15/17 18:36 Dilaudid IVPUSH 09/15/17 18:03 1 mg ONETIME ONE Administration Sodium Chloride 1,000 mls @ 999 mls/hr 09/15/17 17:58 09/15/17 18:34 Normal Saline IV 09/15/17 18:58 999 mls/hr .BOLUS ONE Administration Iopamidol 100 ml 09/15/17 19:48 09/15/17 20:20 Isovue-370 (76%) IV 09/15/17 19:49 85 ml ONETIME ONE Administration Pantoprazole Sodium 40 mg 09/15/17 17:59 09/15/17 18:38 Protonix Iv IVPUSH 09/15/17 18:00 40 mg ONETIME ONE Administration - Radiology Interpretation Free Text/Narrative:: CT Abd/Pelvis w/ IV contrast: prominent prostate, otherwise NAD (per Dr. Washington) - Re-Assessments/Exams Free Text/Narrative Re-Assessment/Exam: 09/15/17 21:24 Symptoms have improved after Protonix, Phenergan, and Dilauidid Departure - Departure Time of Disposition: 21:24 Disposition: Home, Self-Care 01 Condition: Good Clinical Impression: Gastroenteritis - Discharge Information *PRESCRIPTION DRUG MONITORING PROGRAM REVIEWED*: Not Applicable *COPY OF PRESCRIPTION DRUG MONITORING REPORT IN PATIENT ARASH: Not Applicable Prescriptions: Pantoprazole Sodium [Protonix] 40 mg PO DAILY #15 tab Promethazine [Phenergan] 25 mg PO Q6H PRN #20 tab PRN Reason: Nausea/Vomiting Instructions: Viral Gastroenteritis, Adult Referrals: Mi Ribera [employer]PERINTENDENT [Primary Care Provider] - Forms: ED Department Discharge Additional Instructions: Discontinue Zofran. Follow up with your primary physician in 2 days. Return to the ER if symptoms worsen. - My Orders Last 24 Hours: My Active Orders 09/15/17 17:57 UA W/MICROSCOPIC [URIN] Stat 09/15/17 17:58 Sodium Chloride 0.9% [Saline Flush] 10 ml FLUSH ASDIRECTED PRN Saline Lock Insert [OM.PC] Routine 09/15/17 18:01 Promethazine [Phenergan] 12.5 mg Sodium Chloride 0.9% [Normal Saline] 50 ml IV Q6H 09/15/17 18:03 Abdomen Pelvis w Cont [CT] Stat - Assessment/Plan Last 24 Hours: My Active Orders 09/15/17 17:57 UA W/MICROSCOPIC [URIN] Stat 09/15/17 17:58 Sodium Chloride 0.9% [Saline Flush] 10 ml FLUSH ASDIRECTED PRN Saline Lock Insert [OM.PC] Routine 09/15/17 18:01 Promethazine [Phenergan] 12.5 mg Sodium Chloride 0.9% [Normal Saline] 50 ml IV Q6H 09/15/17 18:03 Abdomen Pelvis w Cont [CT] Stat
[2017-09-15] MEDS ORDERED: Iopamidol 755 Mg/ML 100 ML Bottle IV ONE (19:48)
[2017-09-15 22:16] VITALS: BP 119/84
--- NOTE | 2017-09-16 10:37 | CT ---
INDICATION: Abdominal pain from umbilicus to throat times three days. CT ABDOMEN AND PELVIS WITH CONTRAST: Spiral 2.5 mm axial sections were obtained through the abdomen and pelvis with oral and IV contrast (85 mL Isovue 370 at 2 mL/second with 100 second delay). Total exam DLP = 474.03 mGy-cm. An active infiltrate or effusion was not identified in the lower lung thomas or pleural spaces visualized. The heart did not appear enlarged. Bipolar pacemaker leads are noted in place. The liver appeared normal. No gallstones were demonstrated. The adrenals and kidneys appeared normal. The pancreas and spleen appeared normal. No retroperitoneal masses were identified. There are some calcifications noted in the abdominal aorta and iliac arteries, as well as the femoral arteries. The appendix was visualized and appeared normal on axial images #155 through # 163 and on coronal images #56 through #71. No evidence of free air or bowel obstruction was seen. No organomegaly, mass lesions, or free fluid collections were identified in the abdomen or pelvis. The prostate was slightly enlarged, measuring approximately 34 x 43.8 mm in the transverse projection. The urinary bladder was unremarkable. IMPRESSION: Essentially normal CT of the abdomen and pelvis with oral and IV contrast, except to note atherosclerotic changes in the aorta, iliac and femoral arteries and somewhat prominent prostate. Report was called to Dr. Taylor at 2116 hours on 09/15/2017. [facility]
== END 2017-09-15 21:53 | disposition home or self-care (01) ==
LOC: FB.ED 17:22
DX: K52.9 Noninfective gastroenteritis and colitis, unspecified (principal); Z87.891 Personal history of nicotine dependence; J45.909 Unspecified asthma, uncomplicated; F32.9 Major depressive disorder, single episode, unspecified; Z79.899 Other long term (current) drug therapy; Z88.8 Allergy status to other drugs, medicaments and biological substances; Z91.018 Allergy to other foods; Z91.09 Other allergy status, other than to drugs and biological substances
CPT/HCPCS: 36415; 74177; 80053; 82150; 85025; 96361; 96365; 96375; 99284; C9113; J1170; J2550; J7030; J7050; Q9967

== ENCOUNTER 2019-09-16 08:46 | Emergency (ER) | payer BC, MEDICAID ==
[2019-09-16 09:09] VITALS: PULSE 60
[2019-09-16] MEDS ORDERED: Sodium Chloride 0.9% 1,000 ML IV ONE ×2 (09:24→10:08)
[2019-09-16] MEDS ORDERED: Ondansetron 4 MG/2 ML SDV IVPUSH ONE (09:25)
--- NOTE | 2019-09-16 09:30 | EDM.PDOC ---
ED HPI GENERAL MEDICAL PROBLEM - General Chief Complaint: General Time Seen by Provider: 09/16/19 09:00 Source of Information: Reports: Patient History Limitations: Reports: No Limitations - History of Present Illness INITIAL COMMENTS - FREE TEXT/NARRATIVE: c/o n/v x 1.5d 2d ago pt drank 1.5 commercial beers and ate a steak, he had an emesis yesterday he rested in bed and ate only popsicles and tea, had nausea without emesis today he said he learned that one can buy water with electrolytes and he obtained a bottle and drank 4oz says he can feel his stomach gurgling, no nausea now, no pain did have pancreatitis once in past by his report 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, has a pacemaker/defibrillator takes carvedilol for his heart, no palpitations no f/c/d no street drugs says he stays active around his house he has been moving his bowels no new meds in recent months, no street drugs - Related Data Allergies Allergy/AdvReac Type Severity Reaction Status Date / Time cyclobenzaprine HCl Allergy Severe Swelling Verified 09/15/17 17:47 [From Flexeril] digoxin Allergy Cannot Verified 09/15/17 17:47 Remember latex Allergy Hives Verified 09/15/17 17:47 Pork/Porcine Containing Allergy Cannot Verified 09/15/17 17:47 Products Remember tomato [Tomato] Allergy Cannot Verified 09/15/17 17:47 Remember CATS Allergy Cannot Uncoded 09/15/17 17:47 Remember DOGS Allergy Cannot Uncoded 09/15/17 17:47 Remember SEASONAL ALLERGIES Allergy Cannot Uncoded 09/15/17 17:47 Remember Home Meds: Home Meds Formoterol/Mometasone [Dulera 100 MCG/5 MCG] 2 puff PO BID 04/29/15 [History] carvediloL [Coreg] 6.25 mg PO BID 07/10/17 [History] Montelukast [Singulair] 10 mg PO DAILY 08/04/17 [History] Mirtazapine 15 mg PO BEDTIME 09/16/19 [History] Past Medical History Cardiovascular History: Reports: Afib, Cardiomyopathy, Pacemaker, Other (See Below) Other Cardiovascular History: HAS HISTORY OF ENLARGED HEART. Pt has Hx [id number] syndrome. Respiratory History: Reports: Asthma Gastrointestinal History: Reports: Other (See Below) Other Gastrointestinal History: decreased appetite Psychiatric History: Reports: Depression - Infectious Disease History Infectious Disease History: Reports: None - Past Surgical History Cardiovascular Surgical History: Reports: AICD Social & Family History - Family History Family Medical History: Unobtainable - Caffeine Use Caffeine Use: Reports: Coffee - Alcohol Use Date of Last Drink: 09/14/19 - Recreational Drug Use Recreational Drug Use: Yes Recreational Drug Type: Reports: Marijuana/Hashish Recreational Drug Use Frequency: Daily - Living Situation & Occupation Living situation: Reports: Single Occupation: Disabled ED ROS GENERAL - Review of Systems Review Of Systems: See Below Constitutional: Reports: No Symptoms HEENT: Reports: No Symptoms Respiratory: Reports: No Symptoms Cardiovascular: Reports: No Symptoms Endocrine: Reports: No Symptoms GI/Abdominal: Reports: Nausea, Vomiting. Denies: Abdominal Pain : Reports: No Symptoms Musculoskeletal: Reports: No Symptoms Skin: Reports: No Symptoms Neurological: Reports: No Symptoms Psychiatric: Reports: No Symptoms Hematologic/Lymphatic: Reports: No Symptoms Immunologic: Reports: No Symptoms ED EXAM, GENERAL - Physical Exam Exam: See Below Exam Limited By: No Limitations General Appearance: Alert, WD/WN, No Apparent Distress Ears: Hearing Grossly Normal Nose: Normal Inspection Throat/Mouth: Normal Inspection, Normal Voice, No Airway Compromise Head: Atraumatic, Normocephalic Neck: Normal Inspection, Supple, Non-Tender, Full Range of Motion. No: Lymphadenopathy (R), Lymphadenopathy (L) Respiratory/Chest: No Respiratory Distress, Lungs Clear, Normal Breath Sounds, No Accessory Muscle Use, Chest Non-Tender Cardiovascular: Regular Rate, Rhythm, No Edema, No Gallop, No JVD, No Murmur, No Rub GI/Abdominal: Normal Bowel Sounds, Soft, Non-Tender, No Distention, Other (very active BS x 4, soft, NT in epigastric and elsewhere) Back Exam: Normal Inspection, Full Range of Motion, NT Extremities: Normal Inspection, Normal Range of Motion, Non-Tender, No Pedal Edema Neurological: Alert, Oriented, CN II-XII Intact, Normal Cognition, No Motor/Sensory Deficits Psychiatric: Normal Affect, Normal Mood Skin Exam: Warm, Dry, Intact, Normal Color, No Rash Lymphatic: No Adenopathy Course - Vital Signs Last Recorded V/S: Last Vital Signs Temp 36.6 C 09/16/19 08:56 Pulse 60 07/16/20 08:56 Resp 16 09/16/19 08:56 BP 156/115 H 09/16/19 08:56 Pulse Ox 100 09/16/19 08:56 - Orders/Labs/Meds Labs: Laboratory Tests 09/16/19 09/16/19 09/16/19 Range/Units 09:30 09:30 09:30 WBC 9.5 (4.5-12.0) X10-3/uL RBC 5.19 (4.30-5.75) x10(6)uL Hgb 14.9 (13.5-17.8) g/dL Hct 47.4 (30.0-51.3) % MCV 91.2 (80-96) fL MCH 28.6 (27.7-33.6) pg MCHC 31.4 L (32.2-35.4) g/dL RDW 14.0 (11.5-15.5) % Plt Count 229 (125-369) X10(3)uL MPV 8.3 (7.4-10.4) fL Neut % (Auto) 57.9 (46-82) % Lymph % (Auto) 32.0 (13-37) % [place] % (Auto) 7.7 (4-12) % Eos % (Auto) 0 L (1.0-5.0) % Baso % (Auto) 2 (0-2) % Neut # (Auto) 5.6 (1.6-8.3) # Lymph # (Auto) 3.0 (0.6-5.0) # [place] # (Auto) 0.7 (0.0-1.3) # Eos # (Auto) 0.0 (0.0-0.8) # Baso # (Auto) 0.2 (0.0-0.2) # Sodium 138 (135-145) mmol/L Potassium 3.9 (3.5-5.3) mmol/L Chloride 101 (100-110) mmol/L Carbon Dioxide 26 (21-32) mmol/L BUN 30 H (7-18) mg/dL Creatinine 1.2 (0.70-1.30) mg/dL Est Cr Clr Drug Dosing 77.58 mL/min Estimated GFR (MDRD) > 60 (>60) BUN/Creatinine Ratio 25.0 H (9-20) Glucose 100 (80-116) mg/dL Calcium 9.7 (8.6-10.2) mg/dL Magnesium (1.8-2.5) mg/dL Total Bilirubin 1.0 (0.1-1.3) mg/dL AST 31 H D (5-25) IU/L ALT 25 D (12-36) U/L Alkaline Phosphatase 63 (56-112) IU/L C-Reactive Protein 1.2 H (0.5-0.9) mg/dL Total Protein 8.4 H (6.0-8.0) g/dL Albumin 4.3 (3.5-5.2) g/dL Globulin 4.1 g/dL Albumin/Globulin Ratio 1.1 Lipase 65 L (73-393) U/L Urine Color (YELLOW) Urine Appearance (CLEAR) Urine pH (5.0-6.5) Ur Specific Scheller (1.010-1.025) Urine Protein (NEGATIVE) mg/dL Urine Glucose (UA) (NORMAL) mg/dL Urine Ketones (NEGATIVE) mg/dL Urine Occult Blood (NEGATIVE) Urine Nitrite (NEGATIVE) Urine Bilirubin (NEGATIVE) Urine Urobilinogen (NEGATIVE) mg/dL Ur Leukocyte Esterase (NEGATIVE) Urine WBC (0-5) Ur Squamous Epith Cells (NS,R,O) Urine Bacteria (NS) 09/16/19 09/16/19 Range/Units 09:30 11:52 WBC (4.5-12.0) X10-3/uL RBC (4.30-5.75) x10(6)uL Hgb (13.5-17.8) g/dL Hct (30.0-51.3) % MCV (80-96) fL MCH (27.7-33.6) pg MCHC (32.2-35.4) g/dL RDW (11.5-15.5) % Plt Count (125-369) X10(3)uL MPV (7.4-10.4) fL Neut % (Auto) (46-82) % Lymph % (Auto) (13-37) % [place] % (Auto) (4-12) % Eos % (Auto) (1.0-5.0) % Baso % (Auto) (0-2) % Neut # (Auto) (1.6-8.3) # Lymph # (Auto) (0.6-5.0) # [place] # (Auto) (0.0-1.3) # Eos # (Auto) (0.0-0.8) # Baso # (Auto) (0.0-0.2) # Sodium (135-145) mmol/L Potassium (3.5-5.3) mmol/L Chloride (100-110) mmol/L Carbon Dioxide (21-32) mmol/L BUN (7-18) mg/dL Creatinine (0.70-1.30) mg/dL Est Cr Clr Drug Dosing mL/min Estimated GFR (MDRD) (>60) BUN/Creatinine Ratio (9-20) Glucose (80-116) mg/dL Calcium (8.6-10.2) mg/dL Magnesium 2.4 (1.8-2.5) mg/dL Total Bilirubin (0.1-1.3) mg/dL AST (5-25) IU/L ALT (12-36) U/L Alkaline Phosphatase (56-112) IU/L C-Reactive Protein (0.5-0.9) mg/dL Total Protein (6.0-8.0) g/dL Albumin (3.5-5.2) g/dL Globulin g/dL Albumin/Globulin Ratio Lipase (73-393) U/L Urine Color Yellow (YELLOW) Urine Appearance Clear (CLEAR) Urine pH 6.0 (5.0-6.5) Ur Specific Scheller 1.020 (1.010-1.025) Urine Protein Trace (NEGATIVE) mg/dL Urine Glucose (UA) Normal (NORMAL) mg/dL Urine Ketones 50 H (NEGATIVE) mg/dL Urine Occult Blood Negative (NEGATIVE) Urine Nitrite Negative (NEGATIVE) Urine Bilirubin Small H (NEGATIVE) Urine Urobilinogen 1 H (NEGATIVE) mg/dL Ur Leukocyte Esterase Negative (NEGATIVE) Urine WBC 0-5 (0-5) Ur Squamous Epith Cells Few H (NS,R,O) Urine Bacteria Few H (NS) Meds: Medications Discontinued Medications Generic Name Dose Route Start Last Admin Trade Name Freq PRN Reason Stop Dose Admin Sodium Chloride 1,000 mls @ 999 mls/hr 09/16/19 09:24 09/16/19 09:57 Normal Saline IV 09/16/19 10:24 999 mls/hr .BOLUS ONE Administration Sodium Chloride 1,000 mls @ 999 mls/hr 09/16/19 10:08 09/16/19 10:51 Normal Saline IV 09/16/19 11:08 999 mls/hr .BOLUS ONE Administration Ondansetron HCl 4 mg 09/16/19 09:25 09/16/19 09:58 Zofran IVPUSH 09/16/19 09:26 4 mg ONETIME ONE Administration - Re-Assessments/Exams Free Text/Narrative Re-Assessment/Exam: 09/16/19 12:46 pt still with 50 mg/dl ketones in urine after 2 liter, gave only a small amount of dark urine need for hydration, particularly in hot weather, discussed at some length pt feeling much better pt said he has had intolerance of alcohol in the past, can drink malt drinks but almost no commercial brands of beer, says he plans to avoid alcohol Departure - Departure Time of Disposition: 12:44 Disposition: Home, Self-Care 01 Condition: Good Clinical Impression: Severe dehydration - Discharge Information *PRESCRIPTION DRUG MONITORING PROGRAM REVIEWED*: Not Applicable *COPY OF PRESCRIPTION DRUG MONITORING REPORT IN PATIENT ARASH: Not Applicable Instructions: Dehydration, Adult, Rehydration, Adult Referrals: Gordo Kemp MD [Primary Care Provider] - Forms: ED Department Discharge Additional Instructions: Your urine is still very concentrated after 2 liters normal saline. Continue to drink fluids at home, at least 2 more liters today without caffeine or alcohol. Drink 3-4 liters of fluid daily when working outside in warmer weather. See your doctor in one week for further evaluation and recommendations. Return to ED if you are feeling worse. Sepsis Event Note (ED) - Evaluation Sepsis Screening Result: No Definite Risk - Focused Exam Vital Signs: Vital Signs Temp Pulse Resp BP Pulse Ox 09/16/19 08:56 36.6 C 60 16 156/115 H 100
[2019-09-16 13:24] VITALS: BP 155/101
== END 2019-09-16 12:50 | disposition home or self-care (01) ==
LOC: FB.ED 08:46
DX: E86.0 Dehydration (principal); J45.909 Unspecified asthma, uncomplicated; I48.91 Unspecified atrial fibrillation; I45.6 Pre-excitation syndrome; Z88.8 Allergy status to other drugs, medicaments and biological substances; Z91.040 Latex allergy status; Z91.018 Allergy to other foods; Z91.09 Other allergy status, other than to drugs and biological substances; Z79.899 Other long term (current) drug therapy
CPT/HCPCS: 36415; 80053; 81001; 83690; 83735; 85025; 86140; 96361; 96374; 99284; J2405; J7030

== ENCOUNTER 2020-12-12 06:56 | Emergency (ER) | payer MEDICAID ==
[2020-12-12] MEDS ORDERED: Prochlorperazine 10 MG/2 ML SDV IVPUSH STA (07:09)
[2020-12-12] MEDS ORDERED: Ondansetron 4 MG/2 ML SDV IVPUSH STA (07:09)
[2020-12-12] MEDS ORDERED: Sodium Chloride 0.9% 10 ML Syringe FLUSH PRN (07:09)
[2020-12-12] MEDS ORDERED: Atropine/Diphenoxylate 0.025-2.5 MG Tab PO STA (07:11)
[2020-12-12] MEDS ORDERED: Sodium Chloride 0.9% 1,000 ML IV SCH (07:15)
--- NOTE | 2020-12-12 07:28 | EDM.PDOC ---
ED HPI GENERAL MEDICAL PROBLEM - General Stated Complaint: vomiting Time Seen by Provider: 12/12/20 07:00 Source of Information: Reports: Patient History Limitations: Reports: No Limitations - History of Present Illness INITIAL COMMENTS - FREE TEXT/NARRATIVE: Patient presented to the ED because of N/V/D x 4 days. He can't keep anything down and his stool is mostly watery. He was seen at [place] ED yesterday, given IVF and antiemetic and d/c to home. His alb test-Covid, RSV, Flu are all negative except for hypokalemia which was replaced. There is no fever, chills, cough or cold. - Related Data Allergies Allergy/AdvReac Type Severity Reaction Status Date / Time cyclobenzaprine HCl Allergy Severe Swelling Verified 09/15/17 17:47 [From Flexeril] digoxin Allergy Cannot Verified 09/15/17 17:47 Remember latex Allergy Hives Verified 09/15/17 17:47 Pork/Porcine Containing Allergy Cannot Verified 09/15/17 17:47 Products Remember tomato [Tomato] Allergy Cannot Verified 09/15/17 17:47 Remember CATS Allergy Cannot Uncoded 09/15/17 17:47 Remember DOGS Allergy Cannot Uncoded 09/15/17 17:47 Remember SEASONAL ALLERGIES Allergy Cannot Uncoded 09/15/17 17:47 Remember Home Meds: Home Meds Formoterol/Mometasone [Dulera 100 MCG/5 MCG] 2 puff PO BID 04/29/15 [History] carvediloL [Coreg] 6.25 mg PO BID 07/10/17 [History] Montelukast [Singulair] 10 mg PO DAILY 08/04/17 [History] Mirtazapine 15 mg PO BEDTIME 09/16/19 [History] Diphenoxylate HCl/Atropine [Lomotil Tablet] 2 each PO Q6H PRN #15 tablet 12/12/20 [Rx] Ondansetron [Zofran ODT] 4 mg PO Q4H PRN #10 tab.dis 12/12/20 [Rx] Past Medical History Cardiovascular History: Reports: Afib, Cardiomyopathy, Pacemaker, Other (See Below) Other Cardiovascular History: HAS HISTORY OF ENLARGED HEART. Pt has Hx Qlwk-[id number]-[id number] syndrome. Respiratory History: Reports: Asthma Gastrointestinal History: Reports: Other (See Below) Other Gastrointestinal History: decreased appetite Psychiatric History: Reports: Depression - Infectious Disease History Infectious Disease History: Reports: None - Past Surgical History Cardiovascular Surgical History: Reports: AICD Social & Family History - Family History Family Medical History: Unobtainable - Caffeine Use Caffeine Use: Reports: Coffee - Living Situation & Occupation Living situation: Reports: Single Occupation: Disabled ED ROS GENERAL - Review of Systems Review Of Systems: See Below Constitutional: Reports: No Symptoms HEENT: Reports: No Symptoms Respiratory: Reports: No Symptoms Cardiovascular: Reports: No Symptoms Endocrine: Reports: No Symptoms GI/Abdominal: Reports: Diarrhea, Nausea, Vomiting : Reports: No Symptoms Musculoskeletal: Reports: No Symptoms Skin: Reports: No Symptoms Neurological: Reports: No Symptoms Psychiatric: Reports: No Symptoms ED EXAM, GI/ABD - Physical Exam Exam: See Below Exam Limited By: No Limitations General Appearance: Alert, No Apparent Distress Ears: Normal External Exam, Normal Canal, Hearing Grossly Normal, Normal TMs Nose: Normal Inspection, Normal Mucosa, No Blood Throat/Mouth: Normal Inspection, Normal Lips, Normal Teeth Head: Atraumatic, Normocephalic Neck: Normal Inspection, Supple, Non-Tender, Full Range of Motion Respiratory/Chest: No Respiratory Distress, Lungs Clear, Normal Breath Sounds, No Accessory Muscle Use, Chest Non-Tender Cardiovascular: Normal Peripheral Pulses, Regular Rate, Rhythm, No Edema, No Gallop, No JVD, No Murmur, No Rub GI/Abdominal Exam: Normal Bowel Sounds, Soft, Non-Tender, No Organomegaly, No Distention, No Abnormal Bruit, Other (hyperactive BS) Extremities: Normal Inspection, Normal Range of Motion, Non-Tender, No Pedal Edema, Normal Capillary Refill Neurological: Alert, Oriented, CN II-XII Intact, Normal Cognition, Normal Gait, Normal Reflexes, No Motor/Sensory Deficits Psychiatric: Normal Affect Skin Exam: Warm Course - Vital Signs Text/Narrative:: Lab result was reviewed and discussed with christopher S 1 L bolus Zofran 4 mg IV x1 Compazine 10 mg IV x1 Lomotil 2 PO x1 - Orders/Labs/Meds Orders: Active Orders 24 hr Category Date Time Status BASIC METABOLIC PANEL,BMP [CHEM] Stat Lab 12/12/20 07:09 Ordered CBC WITH AUTO DIFF [HEME] Stat Lab 12/12/20 07:09 Ordered Sodium Chloride 0.9% [Normal Saline] 1,000 ml Med 12/12/20 07:15 Active IV ASDIRECTED Sodium Chloride 0.9% [Saline Flush] Med 12/12/20 07:09 Active 10 ml FLUSH ASDIRECTED PRN Saline Lock Insert [OM.PC] Routine Oth 12/12/20 07:09 Ordered Medication Orders Sodium Chloride (Normal Saline) 1,000 mls @ 999 mls/hr IV ASDIRECTED JING Sodium Chloride (Sodium Chloride 0.9% 10 Ml Syringe) 10 ml FLUSH ASDIRECTED PRN PRN Reason: Keep Vein Open Meds: Medications Generic Name Dose Route Start Last Admin Trade Name Freq PRN Reason Stop Dose Admin Sodium Chloride 1,000 mls @ 999 mls/hr 12/12/20 07:15 Normal Saline IV ASDIRECTED JING Sodium Chloride 10 ml 12/12/20 07:09 Sodium Chloride 0.9% 10 Ml Syringe FLUSH ASDIRECTED PRN Keep Vein Open Discontinued Medications Generic Name Dose Route Start Last Admin Trade Name Freq PRN Reason Stop Dose Admin Diphenoxylate HCl/Atropine 2 tab 12/12/20 07:11 Atropine/Diphenoxylate 0.025-2.5 Mg Tab PO 12/12/20 07:12 NOW STA Ondansetron HCl 4 mg 12/12/20 07:09 Ondansetron 4 Mg/2 Ml Sdv IVPUSH 12/12/20 07:10 NOW STA Prochlorperazine Edisylate 10 mg 12/12/20 07:09 Prochlorperazine 10 Mg/2 Ml Sdv IVPUSH 12/12/20 07:10 NOW STA Departure - Departure Time of Disposition: 08:30 Disposition: Home, Self-Care 01 Condition: Good Clinical Impression: Gastroenteritis, Dehydration - Discharge Information Prescriptions: Diphenoxylate HCl/Atropine [Lomotil Tablet] 2 each PO Q6H PRN #15 tablet PRN Reason: Diarrhea Ondansetron [Zofran ODT] 4 mg PO Q4H PRN #10 tab.dis PRN Reason: Nausea Instructions: Dehydration, Adult, [id number] Additional Instructions: Please read discharge instructions on viral gastroenteritis/stomach flu Dehydration Frequent hand washing Drink 2-4 liter of water daily Zofran ODT 4 mg every 4 hours as needed for nausea Lomotil 2 tablets every 6 hours as needed for diarrhrea Follow up as needed - My Orders Last 24 Hours: My Active Orders 12/12/20 07:09 BASIC METABOLIC PANEL,BMP [CHEM] Stat CBC WITH AUTO DIFF [HEME] Stat Sodium Chloride 0.9% [Saline Flush] 10 ml FLUSH ASDIRECTED PRN Saline Lock Insert [OM.PC] Routine 12/12/20 07:15 Sodium Chloride 0.9% [Normal Saline] 1,000 ml IV ASDIRECTED - Assessment/Plan Last 24 Hours: My Active Orders 12/12/20 07:09 BASIC METABOLIC PANEL,BMP [CHEM] Stat CBC WITH AUTO DIFF [HEME] Stat Sodium Chloride 0.9% [Saline Flush] 10 ml FLUSH ASDIRECTED PRN Saline Lock Insert [OM.PC] Routine 12/12/20 07:15 Sodium Chloride 0.9% [Normal Saline] 1,000 ml IV ASDIRECTED
[2020-12-12 08:18] VITALS: BP 126/92; PULSE 64
== END 2020-12-12 08:58 | disposition home or self-care (01) ==
LOC: FB.ED 06:56
DX: K52.9 Noninfective gastroenteritis and colitis, unspecified (principal); E86.0 Dehydration; I48.91 Unspecified atrial fibrillation; Z95.0 Presence of cardiac pacemaker; Z91.018 Allergy to other foods; Z91.09 Other allergy status, other than to drugs and biological substances; Z91.040 Latex allergy status
CPT/HCPCS: 36415; 80048; 85025; 96374; 96375; 99284; A9270; J0780; J2405; J7030

== ENCOUNTER 2021-05-13 17:32 | Emergency (ER) | payer MEDICAID ==
[2021-05-13] MEDS ORDERED: Sodium Chloride 0.9% 1,000 ML IV ONE (17:58)
[2021-05-13] MEDS ORDERED: Ondansetron 4 MG/2 ML SDV IVPUSH ONE (17:59)
[2021-05-13] MEDS ORDERED: Labetalol 20 MG/4 ML Syringe IVPUSH ONE (18:20)
[2021-05-13 19:00] VITALS: PULSE 60
[2021-05-13 19:32] VITALS: BP 163/87
[2021-05-13] MEDS ORDERED: Metoclopramide 10 MG/2 ML SDV IVPUSH STA (19:32)
[2021-05-13] MEDS: Sodium Chloride 0.9% 10 ML Syringe FLUSH PRN ×2 (19:40→20:57)
[2021-05-13] MEDS ORDERED: Atropine/Diphenoxylate 0.025-2.5 MG Tab PO STA (20:20)
[2021-05-13] MEDS ORDERED: Prochlorperazine 10 MG in Sodium Chloride 0.9% 50 ML IV STA (20:24)
[2021-05-13] MEDS ORDERED: hydrALAZINE 20 MG/ML SDV IVPUSH STA (20:54)
== END 2021-05-13 21:10 | disposition home or self-care (01) ==
LOC: FB.ED 17:32
DX: K52.9 Noninfective gastroenteritis and colitis, unspecified (principal); I51.7 Cardiomegaly; I48.91 Unspecified atrial fibrillation; Z95.0 Presence of cardiac pacemaker; Z91.040 Latex allergy status; Z91.018 Allergy to other foods; Z91.09 Other allergy status, other than to drugs and biological substances
CPT/HCPCS: 36415; 80053; 81001; 83735; 84484; 85025; 93005; 93010; 96365; 96375; 99282; 99284-25; A9270-GY; J0360; J0780; J2405; J2765; J3490; J7030

== ENCOUNTER 2021-05-17 21:16 | Emergency (ER) | payer MEDICAID ==
[2021-05-17] MEDS ORDERED: Sodium Chloride 0.9% 10 ML Syringe FLUSH PRN (21:33)
[2021-05-17] MEDS ORDERED: Pantoprazole 40 MG Vial IVPUSH ONE (21:34)
[2021-05-17] MEDS ORDERED: Metoclopramide 10 MG/2 ML SDV IVPUSH STA (21:34)
[2021-05-17] MEDS ORDERED: Prochlorperazine 10 MG in Sodium Chloride 0.9% 50 ML IV STA (21:34)
[2021-05-17] MEDS ORDERED: Sodium Chloride 0.9% 1,000 ML IV SCH (21:45)
[2021-05-17] MEDS ORDERED: Iopamidol 755 Mg/ML 75 ML Bottle IV ONE (21:56)
[2021-05-17] MEDS ORDERED: Ketorolac 30 MG/ML SDV IVPUSH STA (22:00)
[2021-05-17 22:58] LABS: CORONAVIRUS COVID-19 NAA NEGATIVE (NEGATIVE)
[2021-05-17 23:50] VITALS: BP 121/60; PULSE 92
== END 2021-05-17 23:54 | disposition home or self-care (01) ==
LOC: FB.ED 21:16
DX: K52.9 Noninfective gastroenteritis and colitis, unspecified (principal); R11.2 Nausea with vomiting, unspecified; I48.91 Unspecified atrial fibrillation; I11.9 Hypertensive heart disease without heart failure; Z95.0 Presence of cardiac pacemaker; Z91.040 Latex allergy status; Z91.018 Allergy to other foods; Z88.8 Allergy status to other drugs, medicaments and biological substances; Z91.09 Other allergy status, other than to drugs and biological substances; Z72.0 Tobacco use; Z20.822 Contact with and (suspected) exposure to COVID-19
CPT/HCPCS: 0240U; 36415; 71045; 74177; 80053; 82150; 83690; 83735; 85025; 96365; 96375; 99284; C9113; J0780; J1885; J2765; J7030; Q9967; 99282

== ENCOUNTER 2021-07-29 16:40 | Emergency (ER) | payer MEDICAID ==
[2021-07-29] MEDS ORDERED: Acetaminophen/HYDROcodone 325-5 MG Tab PO ONE (16:41)
[2021-07-29] MEDS ORDERED: Penicillin V Potassium 250 MG Tab PO ONE (16:41)
[2021-07-29] MEDS ORDERED: Ketorolac 30 MG/ML SDV IM ONE (16:50)
[2021-07-29] MEDS ORDERED: Penicillin V Potassium 250 MG Tab PO STA (17:00)
[2021-07-29] MEDS ORDERED: Ketorolac 30 MG/ML SDV ONE (17:00)
[2021-07-29 20:06] VITALS: BP 141/72; PULSE 64
== END 2021-07-29 17:35 | disposition home or self-care (01) ==
LOC: FB.ED 16:40
DX: K08.89 Other specified disorders of teeth and supporting structures (principal); I48.91 Unspecified atrial fibrillation; I11.9 Hypertensive heart disease without heart failure; Z95.0 Presence of cardiac pacemaker; Z88.8 Allergy status to other drugs, medicaments and biological substances; Z91.040 Latex allergy status; Z91.018 Allergy to other foods; Z91.09 Other allergy status, other than to drugs and biological substances
CPT/HCPCS: 96372; 99283; A9270; J1885; 99281

== ENCOUNTER 2021-12-20 21:03 | Observation (INO) | payer MEDICAID ==
[2021-12-20] MEDS ORDERED: Ondansetron 4 MG/2 ML SDV IVPUSH ONE (21:06)
[2021-12-20] MEDS ORDERED: Sodium Chloride 0.9% 1,000 ML IV SCH ×2 (21:15→22:30)
[2021-12-20 21:33] LABS: ESTIMATED GFR 69 mL/min (>60)
[2021-12-20] MEDS ORDERED: Ketorolac 30 MG/ML SDV IVPUSH ONE (21:50)
[2021-12-20] MEDS ORDERED: Aspirin 81 MG Tab.Chew PO ONE (22:00)
[2021-12-20] MEDS ORDERED: Potassium Chloride 20 MEQ Tab.ER PO ONE (22:15)
[2021-12-20] MEDS ORDERED: hydrOXYzine HCl 50 MG/ML SDV IM ONE (22:17)
[2021-12-20] MEDS ORDERED: Labetalol 20 MG/4 ML Syringe IVPUSH ONE ×2 (22:21→23:47)
[2021-12-20] MEDS: Morphine 2 MG/ML SYRINGE IVPUSH PRN (22:35)
[2021-12-20] MEDS: NS + KCl 20mEq/L 1,000 ML IV SCH (23:07)
[2021-12-21] MEDS: Morphine 2 MG/ML SYRINGE IVPUSH PRN ×2 (00:43→12:19)
[2021-12-21 06:47] LABS: ESTIMATED GFR 85 mL/min (>60)
[2021-12-21] MEDS: NS + KCl 20mEq/L 1,000 ML IV SCH (06:59)
[2021-12-21] MEDS ORDERED: Albuterol 8 GM Inhaler INH PRN (08:34)
[2021-12-21] MEDS ORDERED: Montelukast 10 MG Tab PO PRN (08:34)
[2021-12-21] MEDS: Carvedilol 25 MG Tab PO SCH ×2 (09:20→18:00)
[2021-12-21] MEDS: Ondansetron 4 MG/2 ML SDV IV PRN (11:31)
[2021-12-21] MEDS: Sodium Chloride 0.9% 10 ML Syringe FLUSH PRN (12:21)
[2021-12-21] MEDS ORDERED: NS + KCl 20mEq/L 1,000 ML IV SCH (15:00)
[2021-12-21] MEDS: Sodium Chloride 0.9% 1,000 ML IV SCH (15:50)
[2021-12-21] MEDS: Pantoprazole 20 MG Tab, Delayed Release PO SCH (17:39)
[2021-12-22] MEDS: Sodium Chloride 0.9% 1,000 ML IV SCH (05:27)
[2021-12-22 06:42] LABS: ESTIMATED GFR 95 mL/min (>60)
[2021-12-22] MEDS: Carvedilol 25 MG Tab PO SCH ×2 (07:31→17:14)
[2021-12-22] MEDS: Pantoprazole 20 MG Tab, Delayed Release PO SCH ×2 (07:31→17:14)
[2021-12-22] MEDS ORDERED: Furosemide 20 MG/2 ML VIAL IVPUSH ONE (13:06)
[2021-12-22] MEDS: Morphine 2 MG/ML SYRINGE IVPUSH PRN (13:22)
[2021-12-22] MEDS: Sodium Chloride 0.9% 10 ML Syringe FLUSH PRN ×3 (13:27→13:46)
[2021-12-22] MEDS: Ondansetron 4 MG/2 ML SDV IV PRN (13:30)
[2021-12-22] MEDS ORDERED: Iopamidol 755 Mg/ML 75 ML Bottle IV ONE (14:28)
[2021-12-22] MEDS: Mirtazapine 15 MG Tab PO SCH (20:00)
[2021-12-22] MEDS ORDERED: Mirtazapine 15 MG Tab PO SCH (21:00)
[2021-12-23 06:28] LABS: ESTIMATED GFR 64 mL/min (>60)
[2021-12-23] MEDS: Pantoprazole 20 MG Tab, Delayed Release PO SCH (06:40)
[2021-12-23] MEDS: Mirtazapine 15 MG Tab PO SCH ×2 (06:44→18:33)
[2021-12-23] MEDS: Carvedilol 25 MG Tab PO SCH ×2 (07:34→17:52)
[2021-12-23] MEDS: Famotidine 10 MG Tab PO SCH ×2 (10:08→20:20)
[2021-12-23] MEDS: Ketorolac 30 MG/ML SDV IM PRN (13:04)
[2021-12-23] MEDS ORDERED: Pantoprazole 20 MG Tab, Delayed Release PO SCH (17:30)
[2021-12-24] MEDS: Mirtazapine 15 MG Tab PO SCH ×2 (06:08→18:26)
[2021-12-24 06:46] LABS: ESTIMATED GFR 95 mL/min (>60)
[2021-12-24] MEDS: Famotidine 10 MG Tab PO SCH ×2 (08:26→20:40)
[2021-12-24] MEDS: Ketorolac 30 MG/ML SDV IM PRN (08:27)
[2021-12-24] MEDS: Carvedilol 25 MG Tab PO SCH ×2 (08:29→18:26)
[2021-12-24] MEDS: Polyethylene Glycol 3350 Powder 17 GM Packet PO SCH (09:45)
[2021-12-24] MEDS: Metoclopramide 5 MG Tab PO SCH ×2 (11:50→16:48)
[2021-12-25] MEDS ORDERED: Lactated Ringers 1,000 ML IV SCH
[2021-12-25] MEDS: Sodium Chloride 0.9% 10 ML Syringe FLUSH PRN
[2021-12-25] MEDS ORDERED: Ketamine 500 mg/10 ML MDV IV ONE (07:30)
[2021-12-25] MEDS ORDERED: Lidocaine 2% 100 MG/5 ML Syringe IVPUSH ONE (07:30)
[2021-12-25] MEDS ORDERED: Midazolam 1 MG/ML 2 ML SDV IV ONE (07:30)
[2021-12-25] MEDS ORDERED: Propofol 200 MG/20 ML SDV IV ONE (07:30)
[2021-12-25] MEDS ORDERED: Sucralfate 1 GM Tab PO ONE (07:43)
[2021-12-25] MEDS ORDERED: Pantoprazole 40 MG Tab.CR PO SCH (08:00)
[2021-12-25] MEDS: Metoclopramide 5 MG Tab PO SCH (08:05)
[2021-12-25] MEDS: Carvedilol 25 MG Tab PO SCH (08:05)
[2021-12-25] MEDS: Polyethylene Glycol 3350 Powder 17 GM Packet PO SCH (08:05)
[2021-12-25] MEDS: Famotidine 10 MG Tab PO SCH (08:06)
[2021-12-25] MEDS: Mirtazapine 15 MG Tab PO SCH (08:06)
[2021-12-25] MEDS ORDERED: Sucralfate 1 GM Tab PO SCH (11:30)
[2021-12-25 13:59] VITALS: BP 129/85; PULSE 60
== END 2021-12-25 13:53 | disposition home or self-care (01) ==
LOC: FB.ED 21:03 → FB.MS 22:19
PROVIDERS: ADMIT Family Medicine; ATTEND Family Medicine
DX: K29.50 Unspecified chronic gastritis without bleeding (principal); B96.81 Helicobacter pylori [H. pylori] as the cause of diseases classified elsewhere; K31.84 Gastroparesis; K25.3 Acute gastric ulcer without hemorrhage or perforation; E86.0 Dehydration; E73.9 Lactose intolerance, unspecified; J45.909 Unspecified asthma, uncomplicated; I50.32 Chronic diastolic (congestive) heart failure; I48.0 Paroxysmal atrial fibrillation; E87.6 Hypokalemia; I11.0 Hypertensive heart disease with heart failure; Z95.810 Presence of automatic (implantable) cardiac defibrillator; Z86.79 Personal history of other diseases of the circulatory system; Z88.8 Allergy status to other drugs, medicaments and biological substances; Z91.040 Latex allergy status; Z91.018 Allergy to other foods; Z91.048 Other nonmedicinal substance allergy status; Z20.822 Contact with and (suspected) exposure to COVID-19
CPT/HCPCS: 00731-QZ; 36415; 71045; 74177; 80048; 80053; 83690; 83735; 84484; 85025; 85027; 86140; 88305; 88342; 93005; 96361; 96372; 96374; 96375; 96376; 99285-25; A9270-GY; G0378; J1885; J1940; J2250; J2270; J2405; J2704; J3410; J3480; J3490; J7030; J7120; Q9967; U0002

== ENCOUNTER 2022-02-26 13:24 | Emergency (ER) | payer MEDICAID ==
[2022-02-26] MEDS ORDERED: Acetaminophen/HYDROcodone 325-5 MG Tab PO ONE (13:25)
[2022-02-26 13:56] VITALS: BP 151/88; PULSE 68
[2022-02-26] MEDS ORDERED: Sodium Chloride 0.9% 10 ML Syringe FLUSH PRN (14:20)
[2022-02-26] MEDS ORDERED: Morphine 4 MG/ML VIAL IVPUSH ONE (14:20)
[2022-02-26] MEDS ORDERED: Pantoprazole 40 MG Vial IVPUSH ONE (14:20)
[2022-02-26] MEDS ORDERED: Ondansetron 4 MG/2 ML SDV IVPUSH ONE (14:20)
[2022-02-26] MEDS ORDERED: Iopamidol 755 Mg/ML 75 ML Bottle IV ONE (14:28)
[2022-02-26] MEDS ORDERED: Sodium Chloride 0.9% 1,000 ML IV SCH (14:30)
[2022-02-26 14:50] LABS: ESTIMATED GFR 108 mL/min (>60)
== END 2022-02-26 19:00 | disposition home or self-care (01) ==
LOC: FB.ED 13:24
DX: K29.70 Gastritis, unspecified, without bleeding (principal); K27.9 Peptic ulcer, site unspecified, unspecified as acute or chronic, without hemorrhage or perforation; K21.9 Gastro-esophageal reflux disease without esophagitis; I10 Essential (primary) hypertension; Z91.011 Allergy to milk products; Z91.040 Latex allergy status; Z91.018 Allergy to other foods; Z91.041 Radiographic dye allergy status; Z88.8 Allergy status to other drugs, medicaments and biological substances; Z79.899 Other long term (current) drug therapy
CPT/HCPCS: 36415; 74177; 80053; 81001; 82150; 83690; 85025; 96361; 96374; 96375; 99285; A9270; C9113; J2270; J2405; J7030; Q9967

== ENCOUNTER 2022-03-13 16:52 | Emergency (ER) | payer MEDICAID ==
[2022-03-13] MEDS ORDERED: Sodium Chloride 0.9% 10 ML Syringe FLUSH PRN (16:58)
[2022-03-13 17:28] LABS: ESTIMATED GFR 76 mL/min (>60)
[2022-03-13] MEDS: Atropine 0.4 MG/ML SDV IVPUSH STA ×2 (17:28→17:35)
[2022-03-13] MEDS ORDERED: Atropine 0.4 MG/ML SDV IVPUSH STA (17:31)
[2022-03-13] MEDS ORDERED: Aspirin 81 MG Tab.Chew PO ONE (17:33)
[2022-03-13] MEDS ORDERED: Nitroglycerin 0.4 MG Tab.SL SL PRN (17:34)
[2022-03-13] MEDS ORDERED: Atropine 0.4 MG/ML SDV IVPUSH ONE (17:40)
[2022-03-13] MEDS ORDERED: Atropine 0.4 MG/ML SDV ONE (17:47)
[2022-03-13 20:03] VITALS: BP 130/82; PULSE 65
== END 2022-03-13 18:25 ==
LOC: FB.ED 16:52
DX: I48.0 Paroxysmal atrial fibrillation (principal); I11.0 Hypertensive heart disease with heart failure; I50.9 Heart failure, unspecified; I45.6 Pre-excitation syndrome; Z95.0 Presence of cardiac pacemaker; Z91.011 Allergy to milk products; Z91.018 Allergy to other foods; Z91.040 Latex allergy status; Z88.8 Allergy status to other drugs, medicaments and biological substances; Z91.012 Allergy to eggs; Z91.09 Other allergy status, other than to drugs and biological substances; Z91.048 Other nonmedicinal substance allergy status
CPT/HCPCS: 36415; 71045; 80053; 83880; 84484; 85025; 85610; 85730; 93005; 96374; 99285-25; A9270-GY; J0461

== ENCOUNTER 2022-06-22 19:29 | Inpatient (IN) | payer MEDICAID ==
[2022-06-22] MEDS ORDERED: Ondansetron 4 MG/2 ML SDV ONE (19:52)
[2022-06-22] MEDS ORDERED: Ondansetron 4 MG/2 ML SDV IVPUSH ONE (20:06)
[2022-06-22] MEDS ORDERED: Sodium Chloride 0.9% 1,000 ML IV SCH (20:15)
[2022-06-22 20:33] LABS: ESTIMATED GFR 76 mL/min (>60)
[2022-06-22] MEDS ORDERED: HYDROmorphone 2 MG/ML SDV IVPUSH ONE (20:56)
[2022-06-22] MEDS ORDERED: hydrOXYzine HCl 50 MG/ML SDV IM ONE (20:56)
[2022-06-22] MEDS ORDERED: Iopamidol 755 Mg/ML 100 ML Bottle IV ONE (21:10)
[2022-06-22] MEDS ORDERED: Ondansetron 4 MG/2 ML SDV IV PRN (22:06)
[2022-06-22] MEDS ORDERED: LORazepam 2 MG/ML SDV IVPUSH PRN (22:06)
[2022-06-22] MEDS ORDERED: hydrALAZINE 20 MG/ML SDV IVPUSH PRN (22:10)
[2022-06-23] MEDS: NS + KCl 20mEq/L 1,000 ML IV SCH ×3 (00:50→18:39)
[2022-06-23] MEDS: Pantoprazole 40 MG Vial IVPUSH SCH ×3 (00:52→21:15)
[2022-06-23] MEDS: Metoclopramide 10 MG/2 ML SDV IVPUSH PRN ×2 (04:32→23:19)
[2022-06-23 07:00] LABS: ESTIMATED GFR 95 mL/min (>60)
[2022-06-23] MEDS ORDERED: Mirtazapine 15 MG Tab PO PRN (09:17)
[2022-06-23] MEDS ORDERED: Albuterol 8 GM Inhaler INH PRN (09:17)
[2022-06-23] MEDS ORDERED: Montelukast 10 MG Tab PO PRN (09:17)
[2022-06-23] MEDS: Carvedilol 25 MG Tab PO SCH ×2 (11:18→20:37)
[2022-06-23] MEDS: Sucralfate 1 GM Tab PO SCH ×3 (11:19→20:37)
[2022-06-23] MEDS: Aspirin 81 MG Tab.EC PO SCH (11:19)
[2022-06-24] MEDS: NS + KCl 20mEq/L 1,000 ML IV SCH (06:36)
[2022-06-24] MEDS: Sucralfate 1 GM Tab PO SCH ×4 (08:08→21:05)
[2022-06-24] MEDS: Aspirin 81 MG Tab.EC PO SCH (08:08)
[2022-06-24] MEDS: Carvedilol 25 MG Tab PO SCH ×2 (08:08→21:08)
[2022-06-24] MEDS ORDERED: Sodium Chloride 0.9% 10 ML Syringe FLUSH PRN (10:00)
[2022-06-24] MEDS ORDERED: Ondansetron 8 MG Tab.DIS PO PRN (11:08)
[2022-06-24] MEDS ORDERED: Metoclopramide 10 MG Tab PO PRN (11:10)
[2022-06-24] MEDS: Pantoprazole 40 MG Tab.CR PO SCH ×2 (11:18→21:06)
[2022-06-24] MEDS: amLODIPine 5 MG Tab PO SCH (13:25)
[2022-06-24] MEDS: Magnesium Hydroxide 400 MG/5 ML Susp 30 ML Cup PO PRN (23:43)
[2022-06-25] MEDS ORDERED: Nitroglycerin 0.4 MG Tab.SL SL ONE (01:29)
[2022-06-25] MEDS ORDERED: Morphine 4 MG/ML VIAL IVPUSH ONE (01:43)
[2022-06-25] MEDS ORDERED: Aspirin 81 MG Tab.Chew PO ONE (01:46)
[2022-06-25 02:43] LABS: ESTIMATED GFR 95 mL/min (>60)
[2022-06-25] MEDS: Sucralfate 1 GM Tab PO SCH (07:05)
[2022-06-25] MEDS: Pantoprazole 40 MG Vial IVPUSH SCH (07:28)
[2022-06-25 07:59] VITALS: BP 150/88; PULSE 55
[2022-06-25] MEDS: Pantoprazole 40 MG Tab.CR PO SCH (08:00)
[2022-06-25] MEDS: amLODIPine 5 MG Tab PO SCH (08:00)
[2022-06-25] MEDS: Carvedilol 25 MG Tab PO SCH (08:00)
[2022-06-25] MEDS: Aspirin 81 MG Tab.EC PO SCH (08:00)
[2022-06-25] MEDS: Magnesium Hydroxide 400 MG/5 ML Susp 30 ML Cup PO PRN (08:00)
== END 2022-06-25 11:12 | disposition home or self-care (01) | DRG 392 ==
LOC: FB.ED 19:29 → FB.MS 22:06
PROVIDERS: ADMIT Family Medicine; ATTEND Family Medicine
DX: R11.2 Nausea with vomiting, unspecified (principal); I42.9 Cardiomyopathy, unspecified; I50.32 Chronic diastolic (congestive) heart failure; K29.00 Acute gastritis without bleeding; I48.91 Unspecified atrial fibrillation; I45.6 Pre-excitation syndrome; F12.10 Cannabis abuse, uncomplicated; F12.188 Cannabis abuse with other cannabis-induced disorder; K21.9 Gastro-esophageal reflux disease without esophagitis; F32.A Depression, unspecified; K27.9 Peptic ulcer, site unspecified, unspecified as acute or chronic, without hemorrhage or perforation; J45.909 Unspecified asthma, uncomplicated; I16.0 Hypertensive urgency; F17.210 Nicotine dependence, cigarettes, uncomplicated; I11.0 Hypertensive heart disease with heart failure; I48.0 Paroxysmal atrial fibrillation; Z91.040 Latex allergy status; Z91.018 Allergy to other foods; Z79.82 Long term (current) use of aspirin; Z79.899 Other long term (current) drug therapy; Z95.0 Presence of cardiac pacemaker; Z98.890 Other specified postprocedural states; Z88.8 Allergy status to other drugs, medicaments and biological substances
CPT/HCPCS: 36415; 71045; 74177; 80048; 80053; 80307; 84484; 85025; 93005; 93010; 96361; 96372; 96374; 96375; 99222; 99232; 99238; 99285; 99285-25; A9270-GY; C9113; J0360; J1170; J2060; J2270; J2405; J2765; J3410; J3480; J3490; J7030; Q9967

== ENCOUNTER 2022-09-25 04:36 | Emergency (ER) | payer MEDICAID ==
[2022-09-25] MEDS ORDERED: Ondansetron 4 MG/2 ML SDV IVPUSH ONE (04:58)
[2022-09-25] MEDS ORDERED: Sodium Chloride 0.9% 1,000 ML IV ONE ×2 (05:01→08:28)
[2022-09-25 05:29] LABS: BASOPHILS ABSOLUTE AUTO 0.1 x10-3/uL (0.0-0.3); BASOPHILS PERCENT AUTO 0.6 % (0.3-3.8); BLOOD UREA NITROGEN,BUN 18 mg/dL (7-18); BUN/CREATININE RATIO 13.8 (9-20); CALCIUM 10.3 mg/dL (8.6-10.2); CARBON DIOXIDE,CO2 22 mmol/L (21-32); CHLORIDE,CL 102 mmol/L (100-110); CREATININE 1.3 mg/dL (0.70-1.30); EOSINOPHILS ABSOLUTE AUTO 0.1 x10-3/uL (0.0-0.6); EOSINOPHILS PERCENT AUTO 0.8 % (0.1-6.8); ESTIMATED GFR 69 mL/min (>60); GLUCOSE RANDOM 119 mg/dL (80-116); HEMATOCRIT 43.3 % (38.3-50.1); HEMOGLOBIN 14.8 g/dL (12.9-17.7); LYMPHOCYTES ABSOLUTE AUTO 2.8 x10-3/uL (0.5-4.5); LYMPHOCYTES PERCENT AUTO 26.3 % (15.8-45.3); MEAN CORPUSCULAR HEMOGLOBIN 30.4 pg (27.0-33.3); MEAN CORPUSCULAR HGB CONC 34.2 g/dL (28.7-35.3); MEAN PLATELET VOLUME 8.1 fL (6.7-11.0); MONOCYTES ABSOLUTE AUTO 0.5 x10-3/uL (0.0-1.2); MONOCYTES PERCENT AUTO 5.1 % (5.5-15.2); NEUTROPHILS ABSOLUTE AUTO 7.2 x10-3/uL (1.7-6.9); NEUTROPHILS PERCENT AUTO 67.2 % (40.3-71.8); PLATELET COUNT,PLT 190 x10(3)uL (117-477); POTASSIUM,K 3.8 mmol/L (3.5-5.3); RED BLOOD CELL COUNT 4.86 x10(6)uL (3.90-5.90); RED CELL DISTRIBUTION WIDTH 14.5 % (12.4-15.0); SODIUM,NA 142 mmol/L (135-145); WHITE BLOOD CELL COUNT,WBC 10.7 x10-3/uL (3.2-10.1)
[2022-09-25 05:35] LABS: A/G RATIO 1.1; ALANINE AMINOTRANSFERASE,ALT 18 U/L (12-36); ALBUMIN 4.5 g/dL (3.5-5.2); ALKALINE PHOSPHATASE 72 IU/L (56-112); ASPARTATE AMNIOTRANSFERASE,AST 25 IU/L (5-25); PROTEIN TOTAL,TP 8.5 g/dL (6.0-8.0)
[2022-09-25 06:17] LABS: BILIRUBIN,URINE NEGATIVE (NEGATIVE); GLUCOSE,URINE NORMAL (NORMAL); KETONES,URINE 50 mg/dL (NEGATIVE); LEUKOCYTE ESTERASE,URINE NEGATIVE (NEGATIVE); NITRITE,URINE NEGATIVE (NEGATIVE); OCCULT BLOOD,URINE NEGATIVE (NEGATIVE); PROTEIN,URINE NEGATIVE (NEGATIVE); UROBILINOGEN,URINE 1 mg/dL (NEGATIVE)
[2022-09-25 06:19] LABS: AMORPHOUS SEDIMENT,URINE OCCASIONAL; APPEARANCE,URINE CLEAR (CLEAR); BACTERIA,URINE FEW (NS); COLOR,URINE YELLOW (YELLOW); MUCUS,URINE MODERATE (NS); RBC,URINE 0-5 (0-5); SQUAMOUS EPITHELIAL CELLS,UR OCCASIONAL (NS,R,O); WBC,URINE 0-5 (0-5)
[2022-09-25 06:20] LABS: AMPHETAMINES SCREEN, URINE NEGATIVE (NEGATIVE); BARBITURATE SCREEN,URINE NEGATIVE (NEGATIVE); BENZODIAZEPINES SCREEN,URINE NEGATIVE (NEGATIVE); METHADONE SCREEN, URINE NEGATIVE (NEGATIVE); METHAMPHETAMINE SCREEN, URINE NEGATIVE (NEGATIVE); OXYCODONE SCREEN,URINE NEGATIVE (NEGATIVE); PROPOXYPHENE SCREEN,URINE NEGATIVE (NEGATIVE); THC SCREEN,URINE POSITIVE (NEGATIVE)
[2022-09-25 06:21] LABS: BUPRENORPHINE SCREEN,URINE NEGATIVE (NEGATIVE)
[2022-09-25] MEDS ORDERED: Iopamidol 755 Mg/ML 100 ML Bottle IV SCH (07:30)
[2022-09-25] MEDS ORDERED: Prochlorperazine 10 MG/2 ML SDV IVPUSH ONE (07:45)
[2022-09-25] MEDS ORDERED: Pantoprazole 40 MG Vial IVPUSH ONE (07:55)
[2022-09-25] MEDS: Ketorolac 30 MG/ML SDV IVPUSH ONE ×2 (07:55→08:01)
[2022-09-25] MEDS ORDERED: Morphine 4 MG/ML VIAL IVPUSH ONE (07:55)
[2022-09-25] MEDS ORDERED: Prochlorperazine 10 MG in Sodium Chloride 0.9% 50 ML IV ONE (07:57)
[2022-09-25] MEDS ORDERED: Labetalol 20 MG/4 ML Syringe IVPUSH ONE (10:04)
[2022-09-25 10:52] VITALS: BP 175/92; PULSE 60
== END 2022-09-25 10:54 | disposition home or self-care (01) ==
LOC: FB.ED 04:36
DX: K29.70 Gastritis, unspecified, without bleeding (principal); K25.9 Gastric ulcer, unspecified as acute or chronic, without hemorrhage or perforation; I11.9 Hypertensive heart disease without heart failure; J45.909 Unspecified asthma, uncomplicated; K21.9 Gastro-esophageal reflux disease without esophagitis; Z88.8 Allergy status to other drugs, medicaments and biological substances; Z91.018 Allergy to other foods; Z91.040 Latex allergy status; Z91.048 Other nonmedicinal substance allergy status; Z91.014 Allergy to mammalian meats; Z79.82 Long term (current) use of aspirin; Z79.899 Other long term (current) drug therapy
CPT/HCPCS: 36415; 74177; 80053; 80307; 81001; 83690; 85025; 96361; 96374; 96375; 99284; C9113; J0780; J2270; J2405; J3490; J7030; Q9967; 93010; 99283; J1885

== ENCOUNTER 2022-10-21 11:04 | Emergency (ER) | payer MEDICAID ==
[2022-10-21] MEDS ORDERED: Prochlorperazine 10 MG/2 ML SDV IVPUSH ONE (11:19)
[2022-10-21] MEDS ORDERED: Sodium Chloride 0.9% 10 ML Syringe FLUSH PRN (11:19)
[2022-10-21] MEDS ORDERED: Ondansetron 4 MG/2 ML SDV IVPUSH ONE (11:19)
[2022-10-21] MEDS ORDERED: Sodium Chloride 0.9% 1,000 ML IV SCH (11:30)
[2022-10-21 11:38] LABS: HEMATOCRIT 41.3 % (38.3-50.1); HEMOGLOBIN 14.1 g/dL (12.9-17.7); MEAN CORPUSCULAR HEMOGLOBIN 30.2 pg (27.0-33.3); MEAN CORPUSCULAR HGB CONC 34.2 g/dL (28.7-35.3); MEAN CORPUSCULAR VOLUME 88.4 fL (80.8-98.7); MEAN PLATELET VOLUME 7.7 fL (6.7-11.0); PLATELET COUNT,PLT 233 x10(3)uL (117-477); RED BLOOD CELL COUNT 4.68 x10(6)uL (3.90-5.90); WHITE BLOOD CELL COUNT,WBC 14.7 x10-3/uL (3.2-10.1)
[2022-10-21 11:42] LABS: BLOOD UREA NITROGEN,BUN 12 mg/dL (7-18); BUN/CREATININE RATIO 8.6 (9-20); CALCIUM 10.3 mg/dL (8.6-10.2); CARBON DIOXIDE,CO2 27 mmol/L (21-32); CHLORIDE,CL 102 mmol/L (100-110); CREATININE 1.4 mg/dL (0.70-1.30); ESTIMATED GFR 63 mL/min (>60); GLUCOSE RANDOM 135 mg/dL (80-116); POTASSIUM,K 3.7 mmol/L (3.5-5.3); SODIUM,NA 141 mmol/L (135-145)
[2022-10-21 11:48] LABS: A/G RATIO 1.2; ALANINE AMINOTRANSFERASE,ALT 17 U/L (12-36); ALBUMIN 4.3 g/dL (3.5-5.2); ALKALINE PHOSPHATASE 74 IU/L (56-112); ASPARTATE AMNIOTRANSFERASE,AST 26 IU/L (5-25); BILIRUBIN TOTAL 0.6 mg/dL (0.1-1.3); INR 0.98 (1.00-1.24); PROTHROMBIN TIME 10.1 sec (9.0-11.1); PTT,PARTIAL THROMBOPLSTIN TIME 28.2 SECONDS (24.4-33.2)
[2022-10-21 11:52] LABS: EOSINOPHILS PERCENT MAN 1 % (0-5); LYMPHOCYTES PERCENT MAN 19 % (13-37); MONOCYTES PERCENT MAN 4 % (4-12); SEG NEUTROPHILS PERCENT MAN 76 % (46-82)
[2022-10-21 12:24] LABS: AMPHETAMINES SCREEN, URINE NEGATIVE (NEGATIVE); BENZODIAZEPINES SCREEN,URINE NEGATIVE (NEGATIVE); METHADONE SCREEN, URINE NEGATIVE (NEGATIVE); METHAMPHETAMINE SCREEN, URINE NEGATIVE (NEGATIVE); THC SCREEN,URINE POSITIVE (NEGATIVE)
[2022-10-21 12:25] LABS: BARBITURATE SCREEN,URINE NEGATIVE (NEGATIVE); BUPRENORPHINE SCREEN,URINE NEGATIVE (NEGATIVE); OXYCODONE SCREEN,URINE NEGATIVE (NEGATIVE); PROPOXYPHENE SCREEN,URINE NEGATIVE (NEGATIVE)
[2022-10-21 13:30] VITALS: PULSE 60
[2022-10-21] MEDS ORDERED: cloNIDine 0.1 MG Tab PO ONE (13:31)
[2022-10-21] MEDS ORDERED: hydrALAZINE 20 MG/ML SDV IVPUSH ONE (13:31)
[2022-10-21 14:14] VITALS: BP 169/03
== END 2022-10-21 14:15 | disposition home or self-care (01) ==
LOC: FB.ED 11:04
DX: R11.10 Vomiting, unspecified (principal); F12.120 Cannabis abuse with intoxication, uncomplicated; I10 Essential (primary) hypertension; I48.91 Unspecified atrial fibrillation; J45.909 Unspecified asthma, uncomplicated; K21.9 Gastro-esophageal reflux disease without esophagitis; Z88.8 Allergy status to other drugs, medicaments and biological substances; Z91.018 Allergy to other foods; Z91.048 Other nonmedicinal substance allergy status; Z91.040 Latex allergy status; Z91.011 Allergy to milk products; Z91.041 Radiographic dye allergy status; Z79.899 Other long term (current) drug therapy; Z79.82 Long term (current) use of aspirin
CPT/HCPCS: 36415; 71045; 80053; 80307; 83735; 85025; 85610; 85730; 93005; 96361; 96374; 96375; 99285; A9270; J0360; J0780; J2405; J3490; J7030

== ENCOUNTER 2022-11-12 09:35 | Emergency (ER) | payer MEDICAID ==
[2022-11-12] MEDS ORDERED: Sodium Chloride 0.9% 1,000 ML IV ONE (10:42)
[2022-11-12 10:52] LABS: BASOPHILS PERCENT AUTO 0.4 % (0.3-3.8); EOSINOPHILS PERCENT AUTO 0.6 % (0.1-6.8); HEMATOCRIT 39.7 % (38.3-50.1); HEMOGLOBIN 13.4 g/dL (12.9-17.7); LYMPHOCYTES ABSOLUTE AUTO 1.7 x10-3/uL (0.5-4.5); LYMPHOCYTES PERCENT AUTO 21.7 % (15.8-45.3); MEAN CORPUSCULAR HEMOGLOBIN 30.7 pg (27.0-33.3); MEAN CORPUSCULAR HGB CONC 33.8 g/dL (28.7-35.3); MEAN CORPUSCULAR VOLUME 90.8 fL (80.8-98.7); MONOCYTES ABSOLUTE AUTO 0.5 x10-3/uL (0.0-1.2); MONOCYTES PERCENT AUTO 5.8 % (5.5-15.2); NEUTROPHILS ABSOLUTE AUTO 5.7 x10-3/uL (1.7-6.9); NEUTROPHILS PERCENT AUTO 71.5 % (40.3-71.8); PLATELET COUNT,PLT 234 x10(3)uL (117-477); RED BLOOD CELL COUNT 4.37 x10(6)uL (3.90-5.90); RED CELL DISTRIBUTION WIDTH 14.1 % (12.4-15.0)
[2022-11-12 10:57] LABS: BLOOD UREA NITROGEN,BUN 13 mg/dL (7-18); CALCIUM 9.1 mg/dL (8.6-10.2); CARBON DIOXIDE,CO2 32 mmol/L (21-32); CHLORIDE,CL 103 mmol/L (100-110); CREATININE 1.3 mg/dL (0.70-1.30); EST CRCL DRUG DOSING (CG) 69.06 mL/min; ESTIMATED GFR 69 mL/min (>60); GLUCOSE RANDOM 123 mg/dL (80-116); POTASSIUM,K 3.5 mmol/L (3.5-5.3); SODIUM,NA 143 mmol/L (135-145)
[2022-11-12 11:02] LABS: C-REACTIVE PROTEIN 0.42 mg/dL (<0.33)
[2022-11-12 11:03] LABS: A/G RATIO 1.2; ALANINE AMINOTRANSFERASE,ALT 17 U/L (12-36); ALBUMIN 4.2 g/dL (3.5-5.2); ALKALINE PHOSPHATASE 70 IU/L (56-112); ASPARTATE AMNIOTRANSFERASE,AST 18 IU/L (5-25); BILIRUBIN TOTAL 0.7 mg/dL (0.1-1.3); PROTEIN TOTAL,TP 7.7 g/dL (6.0-8.0)
[2022-11-12] MEDS ORDERED: Sodium Chloride 0.9% 10 ML Syringe FLUSH PRN (11:06)
[2022-11-12] MEDS ORDERED: diphenhydrAMINE 50 MG/ML SDV IVPUSH ONE (13:10)
[2022-11-12] MEDS ORDERED: methylPREDNISolone Sodium Succinate 125 MG/2 ML SDV IVPUSH ONE (13:14)
[2022-11-12] MEDS ORDERED: Metoclopramide 10 MG/2 ML SDV IVPUSH ONE (13:15)
[2022-11-12] MEDS ORDERED: Ketorolac 30 MG/ML SDV IVPUSH ONE (13:15)
[2022-11-12 21:00] VITALS: BP 156/93; PULSE 59
== END 2022-11-12 13:37 | disposition home or self-care (01) ==
LOC: FB.ED 09:35
DX: K52.9 Noninfective gastroenteritis and colitis, unspecified (principal); R79.82 Elevated C-reactive protein (CRP); K21.9 Gastro-esophageal reflux disease without esophagitis; I48.91 Unspecified atrial fibrillation; I11.9 Hypertensive heart disease without heart failure; J45.909 Unspecified asthma, uncomplicated; Z87.891 Personal history of nicotine dependence; Z95.0 Presence of cardiac pacemaker; Z91.018 Allergy to other foods; Z91.012 Allergy to eggs; Z91.041 Radiographic dye allergy status; Z91.040 Latex allergy status; Z91.011 Allergy to milk products; Z88.8 Allergy status to other drugs, medicaments and biological substances; Z79.82 Long term (current) use of aspirin; Z79.899 Other long term (current) drug therapy; Z91.09 Other allergy status, other than to drugs and biological substances
CPT/HCPCS: 36410; 36415; 74019; 80053; 83690; 83735; 85025; 86140; 93005; 96361; 96374; 96375; 99284; J1200; J1885; J2765; J3490; J7030

== ENCOUNTER 2022-11-18 11:20 | Emergency (ER) | payer MEDICAID ==
[2022-11-18 12:07] LABS: BASOPHILS ABSOLUTE AUTO 0.1 x10-3/uL (0.0-0.3); EOSINOPHILS ABSOLUTE AUTO 0.1 x10-3/uL (0.0-0.6); EOSINOPHILS PERCENT AUTO 0.9 % (0.1-6.8); HEMATOCRIT 38.8 % (38.3-50.1); HEMOGLOBIN 13.3 g/dL (12.9-17.7); LYMPHOCYTES ABSOLUTE AUTO 2.6 x10-3/uL (0.5-4.5); LYMPHOCYTES PERCENT AUTO 25.6 % (15.8-45.3); MEAN CORPUSCULAR HEMOGLOBIN 30.3 pg (27.0-33.3); MEAN CORPUSCULAR HGB CONC 34.4 g/dL (28.7-35.3); MEAN CORPUSCULAR VOLUME 88.1 fL (80.8-98.7); MEAN PLATELET VOLUME 7.6 fL (6.7-11.0); MONOCYTES ABSOLUTE AUTO 0.7 x10-3/uL (0.0-1.2); MONOCYTES PERCENT AUTO 7.3 % (5.5-15.2); NEUTROPHILS ABSOLUTE AUTO 6.5 x10-3/uL (1.7-6.9); NEUTROPHILS PERCENT AUTO 65.2 % (40.3-71.8); PLATELET COUNT,PLT 232 x10(3)uL (117-477); RED BLOOD CELL COUNT 4.41 x10(6)uL (3.90-5.90); RED CELL DISTRIBUTION WIDTH 13.9 % (12.4-15.0)
[2022-11-18 12:11] LABS: BLOOD UREA NITROGEN,BUN 21 mg/dL (7-18); BUN/CREATININE RATIO 17.5 (9-20); CALCIUM 9.5 mg/dL (8.6-10.2); CARBON DIOXIDE,CO2 27 mmol/L (21-32); CHLORIDE,CL 102 mmol/L (100-110); CREATININE 1.2 mg/dL (0.70-1.30); EST CRCL DRUG DOSING (CG) 75.21 mL/min; ESTIMATED GFR 76 mL/min (>60); GLUCOSE RANDOM 122 mg/dL (80-116); POTASSIUM,K 3.2 mmol/L (3.5-5.3); SODIUM,NA 141 mmol/L (135-145)
[2022-11-18 12:13] LABS: C-REACTIVE PROTEIN 0.13 mg/dL (<0.33)
[2022-11-18 12:16] LABS: A/G RATIO 1.1; ALANINE AMINOTRANSFERASE,ALT 17 U/L (12-36); ALKALINE PHOSPHATASE 62 IU/L (56-112); ASPARTATE AMNIOTRANSFERASE,AST 10 IU/L (5-25); BILIRUBIN TOTAL 0.8 mg/dL (0.1-1.3); MAGNESIUM 2.1 mg/dL (1.8-2.5); PROTEIN TOTAL,TP 7.6 g/dL (6.0-8.0)
[2022-11-18] MEDS ORDERED: Sodium Chloride 0.9% 1,000 ML IV ONE ×3 (12:17→16:28)
[2022-11-18] MEDS ORDERED: LORazepam 2 MG/ML SDV IVPUSH ONE (12:17)
[2022-11-18] MEDS ORDERED: Haloperidol Lactate 5 MG/ML SDV IV ONE (12:17)
[2022-11-18] MEDS: Sodium Chloride 0.9% 10 ML Syringe FLUSH PRN ×2 (13:14→14:28)
[2022-11-18] MEDS: Sodium Chloride 0.9% 1,000 ML IV SCH ×2 (15:30→17:28)
[2022-11-18 21:02] LABS: BILIRUBIN,URINE NEGATIVE (NEGATIVE); GLUCOSE,URINE NORMAL (NORMAL); KETONES,URINE NEGATIVE (NEGATIVE); LEUKOCYTE ESTERASE,URINE NEGATIVE (NEGATIVE); NITRITE,URINE NEGATIVE (NEGATIVE); OCCULT BLOOD,URINE NEGATIVE (NEGATIVE); PROTEIN,URINE NEGATIVE (NEGATIVE); UROBILINOGEN,URINE NORMAL (NEGATIVE)
[2022-11-18 21:04] LABS: APPEARANCE,URINE CLEAR (CLEAR); BACTERIA,URINE OCCASIONAL (NS); COLOR,URINE YELLOW (YELLOW); RBC,URINE NOT SEEN (0-5); SQUAMOUS EPITHELIAL CELLS,UR OCCASIONAL (NS,R,O); WBC,URINE 0-5 (0-5)
[2022-11-18 21:16] LABS: AMPHETAMINES SCREEN, URINE NEGATIVE (NEGATIVE); BENZODIAZEPINES SCREEN,URINE POSITIVE (NEGATIVE); METHAMPHETAMINE SCREEN, URINE NEGATIVE (NEGATIVE); THC SCREEN,URINE POSITIVE (NEGATIVE)
[2022-11-18 21:17] LABS: BARBITURATE SCREEN,URINE NEGATIVE (NEGATIVE); BUPRENORPHINE SCREEN,URINE NEGATIVE (NEGATIVE); METHADONE SCREEN, URINE NEGATIVE (NEGATIVE); OXYCODONE SCREEN,URINE NEGATIVE (NEGATIVE); PROPOXYPHENE SCREEN,URINE NEGATIVE (NEGATIVE)
[2022-11-19 08:48] VITALS: BP 154/102; PULSE 50
== END 2022-11-18 22:20 | disposition home or self-care (01) ==
LOC: FB.ED 11:20
DX: F12.188 Cannabis abuse with other cannabis-induced disorder (principal); R11.2 Nausea with vomiting, unspecified; E86.0 Dehydration; R10.10 Upper abdominal pain, unspecified; I25.10 Atherosclerotic heart disease of native coronary artery without angina pectoris; I48.91 Unspecified atrial fibrillation; I10 Essential (primary) hypertension; K21.9 Gastro-esophageal reflux disease without esophagitis; Z88.8 Allergy status to other drugs, medicaments and biological substances; Z91.011 Allergy to milk products; Z91.018 Allergy to other foods; Z91.040 Latex allergy status; Z91.048 Other nonmedicinal substance allergy status; Z79.899 Other long term (current) drug therapy
CPT/HCPCS: 36415; 80053; 80307; 81001; 83605; 83690; 83735; 84484; 85025; 86140; 93005; 93010; 96361; 96374; 96375; 99284; 99284-25; J1630; J2060; J3490; J7030

== ENCOUNTER 2023-09-02 04:26 | Emergency (ER) | payer MEDICAID ==
[2023-09-02 05:16] LABS: BASOPHILS PERCENT AUTO 0.5 % (0.3-3.8); EOSINOPHILS ABSOLUTE AUTO 0.1 x10-3/uL (0.0-0.6); EOSINOPHILS PERCENT AUTO 1.4 % (0.1-6.8); HEMATOCRIT 39.4 % (38.3-50.1); HEMOGLOBIN 12.9 g/dL (12.9-17.7); LYMPHOCYTES ABSOLUTE AUTO 2.4 x10-3/uL (0.5-4.5); LYMPHOCYTES PERCENT AUTO 24.7 % (15.8-45.3); MEAN CORPUSCULAR HEMOGLOBIN 29.8 pg (27.0-33.3); MEAN CORPUSCULAR HGB CONC 32.8 g/dL (28.7-35.3); MEAN CORPUSCULAR VOLUME 90.7 fL (80.8-98.7); MEAN PLATELET VOLUME 7.9 fL (6.7-11.0); MONOCYTES ABSOLUTE AUTO 0.7 x10-3/uL (0.0-1.2); NEUTROPHILS ABSOLUTE AUTO 6.5 x10-3/uL (1.7-6.9); NEUTROPHILS PERCENT AUTO 66.4 % (40.3-71.8); PLATELET COUNT,PLT 210 x10(3)uL (117-477); RED BLOOD CELL COUNT 4.34 x10(6)uL (3.90-5.90); RED CELL DISTRIBUTION WIDTH 14.5 % (12.4-15.0); WHITE BLOOD CELL COUNT,WBC 9.8 x10-3/uL (3.2-10.1)
[2023-09-02 05:21] LABS: BLOOD UREA NITROGEN,BUN 9 mg/dL (7-18); CALCIUM 8.9 mg/dL (8.6-10.2); CARBON DIOXIDE,CO2 29 mmol/L (21-32); CHLORIDE,CL 102 mmol/L (100-110); ESTIMATED GFR 94 mL/min (>60); GLUCOSE RANDOM 106 mg/dL (80-116); POTASSIUM,K 3.5 mmol/L (3.5-5.3); SODIUM,NA 138 mmol/L (135-145)
[2023-09-02 05:27] LABS: ALANINE AMINOTRANSFERASE,ALT 16 U/L (12-36); ALBUMIN 3.7 g/dL (3.5-5.2); ALKALINE PHOSPHATASE 66 IU/L (56-112); ASPARTATE AMNIOTRANSFERASE,AST 26 IU/L (5-25); BILIRUBIN TOTAL 0.5 mg/dL (0.1-1.3); MAGNESIUM 1.8 mg/dL (1.8-2.5); PROTEIN TOTAL,TP 7.4 g/dL (6.0-8.0)
[2023-09-02 05:28] LABS: AMPHETAMINES SCREEN, URINE NEGATIVE (NEGATIVE); BARBITURATE SCREEN,URINE NEGATIVE (NEGATIVE); BENZODIAZEPINES SCREEN,URINE NEGATIVE (NEGATIVE); METHADONE SCREEN, URINE NEGATIVE (NEGATIVE); METHAMPHETAMINE SCREEN, URINE NEGATIVE (NEGATIVE); OXYCODONE SCREEN,URINE NEGATIVE (NEGATIVE); THC SCREEN,URINE POSITIVE (NEGATIVE)
[2023-09-02 05:29] LABS: BUPRENORPHINE SCREEN,URINE NEGATIVE (NEGATIVE)
[2023-09-02 05:30] LABS: BILIRUBIN,URINE NEGATIVE (NEGATIVE); GLUCOSE,URINE NORMAL (NORMAL); KETONES,URINE NEGATIVE (NEGATIVE); LEUKOCYTE ESTERASE,URINE NEGATIVE (NEGATIVE); NITRITE,URINE NEGATIVE (NEGATIVE); OCCULT BLOOD,URINE NEGATIVE (NEGATIVE); PROTEIN,URINE NEGATIVE (NEGATIVE); UROBILINOGEN,URINE NORMAL (NEGATIVE)
[2023-09-02] MEDS: Carvedilol 25 MG Tab PO ONE (05:32)
[2023-09-02] MEDS: Losartan 50 MG Tab PO ONE (05:33)
[2023-09-02 05:35] VITALS: BP 187/120; PULSE 51
[2023-09-02 05:35] LABS: APPEARANCE,URINE CLEAR (CLEAR); BACTERIA,URINE RARE (NS); COLOR,URINE YELLOW (YELLOW); RBC,URINE 0-5 (0-5); SQUAMOUS EPITHELIAL CELLS,UR OCCASIONAL (NS,R,O); WBC,URINE 0-5 (0-5)
[2023-09-02] MEDS: Amoxicillin/Clavulanate K 875-125 MG Tab PO ONE (08:46)
[2023-09-02] MEDS: Ketorolac 30 MG/ML SDV IVPUSH ONE (08:46)
[2023-09-02] MEDS: Sodium Chloride 0.9% 10 ML Syringe FLUSH PRN (08:47)
== END 2023-09-02 09:20 | disposition home or self-care (01) ==
LOC: FB.ED 04:26
DX: I10 Essential (primary) hypertension (principal); K04.7 Periapical abscess without sinus; H53.9 Unspecified visual disturbance; I48.91 Unspecified atrial fibrillation; I25.10 Atherosclerotic heart disease of native coronary artery without angina pectoris; J30.2 Other seasonal allergic rhinitis; F17.200 Nicotine dependence, unspecified, uncomplicated; Z95.0 Presence of cardiac pacemaker; Z79.899 Other long term (current) drug therapy; Z91.014 Allergy to mammalian meats; Z91.011 Allergy to milk products; Z91.018 Allergy to other foods; Z91.040 Latex allergy status; Z91.041 Radiographic dye allergy status; Z91.09 Other allergy status, other than to drugs and biological substances; Z88.8 Allergy status to other drugs, medicaments and biological substances
CPT/HCPCS: 36415; 70450; 71045; 80053; 80307; 81001; 82947; 83735; 83880; 84484; 85025; 93005; 93010; 96374; 99284; 99285-25; A9270-GY; J1885; J3490

== ENCOUNTER 2024-03-29 10:32 | Emergency (ER) | payer MEDICAID ==
[2024-03-29 10:50] VITALS: BP 128/90; PULSE 60
[2024-03-29] MEDS: Ketorolac 30 MG/ML SDV IM ONE (10:58)
== END 2024-03-29 11:09 | disposition home or self-care (01) ==
LOC: FB.ED 10:32
DX: K08.89 Other specified disorders of teeth and supporting structures (principal); I10 Essential (primary) hypertension; I25.10 Atherosclerotic heart disease of native coronary artery without angina pectoris; Z95.0 Presence of cardiac pacemaker; Z79.899 Other long term (current) drug therapy; Z91.018 Allergy to other foods; Z91.09 Other allergy status, other than to drugs and biological substances; Z91.041 Radiographic dye allergy status; Z91.040 Latex allergy status; Z91.014 Allergy to mammalian meats; Z91.011 Allergy to milk products; Z88.8 Allergy status to other drugs, medicaments and biological substances
CPT/HCPCS: 96372; 99282; J1885

== ENCOUNTER 2024-10-21 12:04 | Emergency (ER) | payer MEDICAID ==
[2024-10-21] MEDS ORDERED: Ondansetron 4 MG Tab.DIS PO ONE (12:05)
[2024-10-21] MEDS ORDERED: Sodium Chloride 0.9% 10 ML Syringe FLUSH PRN (12:54)
[2024-10-21 13:06] LABS: BASOPHILS ABSOLUTE AUTO 0.0 x10-3/uL (0.0-0.3); BASOPHILS PERCENT AUTO 0.6 % (0.3-3.8); EOSINOPHILS ABSOLUTE AUTO 0.1 x10-3/uL (0.0-0.6); EOSINOPHILS PERCENT AUTO 1.0 % (0.1-6.8); LYMPHOCYTES ABSOLUTE AUTO 2.8 x10-3/uL (0.5-4.5); LYMPHOCYTES PERCENT AUTO 35.7 % (15.8-45.3); MEAN PLATELET VOLUME 7.6 fL (6.7-11.0); MONOCYTES ABSOLUTE AUTO 0.3 x10-3/uL (0.0-1.2); MONOCYTES PERCENT AUTO 4.3 % (5.5-15.2); NEUTROPHILS ABSOLUTE AUTO 4.6 x10-3/uL (1.7-6.9); NEUTROPHILS PERCENT AUTO 58.4 % (40.3-71.8); PLATELET COUNT,PLT 248 x10(3)uL (117-477); RED BLOOD CELL COUNT 4.59 x10(6)uL (3.90-5.90); RED CELL DISTRIBUTION WIDTH 14.4 % (12.4-15.0); WHITE BLOOD CELL COUNT,WBC 7.8 x10-3/uL (3.2-10.1)
[2024-10-21 13:09] LABS: BLOOD UREA NITROGEN,BUN 19 mg/dL (7-18); CARBON DIOXIDE,CO2 24 mmol/L (21-32); CHLORIDE,CL 104 mmol/L (100-110); CREATININE 1.1 mg/dL (0.70-1.30); ESTIMATED GFR 83 mL/min (>60); GLUCOSE RANDOM 105 mg/dL (80-116); POTASSIUM,K 3.8 mmol/L (3.5-5.3); SODIUM,NA 142 mmol/L (135-145)
[2024-10-21 13:15] LABS: A/G RATIO 1.2; ALANINE AMINOTRANSFERASE,ALT 20 U/L (12-36); ASPARTATE AMNIOTRANSFERASE,AST 24 IU/L (5-25); BILIRUBIN TOTAL 1.1 mg/dL (0.1-1.3); PROTEIN TOTAL,TP 8.1 g/dL (6.0-8.0)
[2024-10-21 14:30] LABS: GLUCOSE,URINE NORMAL (NORMAL); OCCULT BLOOD,URINE NEGATIVE (NEGATIVE)
[2024-10-21 14:31] LABS: APPEARANCE,URINE CLEAR (CLEAR)
[2024-10-21 14:37] LABS: AMPHETAMINES SCREEN, URINE NEGATIVE (NEGATIVE); METHADONE SCREEN, URINE NEGATIVE (NEGATIVE); METHAMPHETAMINE SCREEN, URINE NEGATIVE (NEGATIVE); OXYCODONE SCREEN,URINE NEGATIVE (NEGATIVE)
[2024-10-21 14:38] LABS: BUPRENORPHINE SCREEN,URINE NEGATIVE (NEGATIVE)
[2024-10-21] MEDS: Ondansetron 4 MG/2 ML SDV IVPUSH ONE (15:44)
[2024-10-21 20:54] VITALS: PULSE 61
[2024-10-21 20:55] VITALS: BP 144/88
== END 2024-10-21 18:03 | disposition home or self-care (01) ==
LOC: FB.ED 12:04
DX: R11.2 Nausea with vomiting, unspecified (principal); F12.10 Cannabis abuse, uncomplicated; E86.0 Dehydration; I48.91 Unspecified atrial fibrillation; I25.10 Atherosclerotic heart disease of native coronary artery without angina pectoris; I10 Essential (primary) hypertension; J45.909 Unspecified asthma, uncomplicated; Z95.0 Presence of cardiac pacemaker; Z91.048 Other nonmedicinal substance allergy status; Z88.8 Allergy status to other drugs, medicaments and biological substances; Z91.040 Latex allergy status; Z91.018 Allergy to other foods; Z91.041 Radiographic dye allergy status; Z91.09 Other allergy status, other than to drugs and biological substances; Z79.899 Other long term (current) drug therapy
CPT/HCPCS: 36415; 74019; 80053; 80307; 81003; 83605; 83690; 83735; 84484; 85025; 86140; 93005; 96361; 96374; 96375; 99284; J1630; J2405; J7030; Q0162; 93010; 99283